=== PATIENT | male | born 1940 ===

== ENCOUNTER 2017-01-29 05:58 | Observation (INO) | payer MEDICARE, OTHER ==
[2017-01-29 05:59] VITALS: PULSE 158; BMI 23.2
--- NOTE | 2017-01-29 07:09 | ED PDOC ---
HPI: General Adult Time Seen by Provider: 01/29/17 07:06 Chief Complaint (Nursing): Abdominal Pain Chief Complaint (Provider): abdominal pain History Per: Patient History/Exam Limitations: no limitations Additional Complaint(s): 77yo male comes to the ED complaining of lower abdominal pain with constipation for several days. No nausea, vomit, diarrhea. He also reports shortness of breath, but no cough or chest pain. Last dialysis was yesterday. PMD: Dr. Aiken Past Medical History Reviewed: Historical Data, Nursing Documentation, Vital Signs Vital Signs: Last Vital Signs Temp 98.4 F 01/29/17 06:39 Pulse 71 01/29/17 06:39 Resp 18 01/29/17 06:39 BP 145/83 01/29/17 06:39 Pulse Ox 99 01/29/17 07:19 - Medical History PMH: CAD, CHF, HTN, Hypercholesterolemia, Pancreatitis, End Stage Renal Disease , Chronic Kidney Disease - Surgical History Surgical History: Appendectomy, Cholecystectomy, Hernia Repair - Family History Family History: States: Unknown Family Hx - Home Medications Home Medications: Ambulatory Orders Medication Instructions Recorded Valsartan [Diovan] 320 mg PO DAILY 05/30/16 - Allergies Allergies/Adverse Reactions: Allergies Allergy/AdvReac Type Severity Reaction Status Date / Time No Known Allergies Allergy Verified 05/30/16 09:50 Review of Systems ROS Statement: Except As Marked, All Systems Reviewed And Found Negative Cardiovascular: Negative for: Chest Pain Respiratory: Positive for: Shortness of Breath. Negative for: Cough Gastrointestinal: Positive for: Abdominal Pain, Constipation. Negative for: Nausea, Vomiting, Diarrhea Physical Exam - Reviewed Nursing Documentation Reviewed: Yes Vital Signs Reviewed: Yes - Physical Exam Appears: Positive for: Well, Non-toxic, No Acute Distress Head Exam: Positive for: ATRAUMATIC, NORMAL INSPECTION, NORMOCEPHALIC Skin: Positive for: Warm, Dry Eye Exam: Positive for: EOMI, PERRL Cardiovascular/Chest: Positive for: Regular Rate, Rhythm Respiratory: Positive for: Normal Breath Sounds. Negative for: Rales, Rhonchi, Wheezing Gastrointestinal/Abdominal: Positive for: Normal Exam, Soft. Negative for: Tenderness, Guarding, Rebound Neurologic/Psych: Positive for: Alert, Oriented - Laboratory Results Result Diagrams: 01/29/17 07:49 01/29/17 07:49 - ECG O2 Sat by Pulse Oximetry: 99 (RA) Pulse Ox Interpretation: Normal Medical Decision Making Medical Decision Makin CT abd/pel w/o, EKG, CXR, labs, blood culture ordered. Disposition - Clinical Impression Clinical Impression: Chronic kidney disease requiring chronic dialysis, Colitis, COPD (chronic obstructive pulmonary disease) - Patient ED Disposition Is Patient to be Admitted: Yes - Disposition Disposition Time: 10:15 Condition: FAIR - Pt Status Changed To: Hospital Disposition Of: Observation - POA Present On Arrival: None Additional Comments - Additional Comments Additional Comments: Scribe Attestation Documented by Justin Quach acting as a scribe for Sae Gonzales MD. Provider Attestation All medical record entries made by the Scribe were at my direction and personally dictated by me. I have reviewed the chart and agree that the record accurately reflects my personal performance of the history, physical exam, medical decision making, and the department course for this patient. I have also personally directed, reviewed, and agree with the discharge instructions and disposition
[2017-01-29 07:52] LABS: BASO % 0.5 % (0.0-2.0); EOS # 0.6 K/uL (0.0-0.7); EOS % 7.9 % (0.0-4.0); HEMATOCRIT 38.5 % (35.0-51.0); LYMPH # 2.4 K/uL (1.0-4.3); LYMPH % 32.3 % (20.0-40.0); MEAN CELL VOLUME 89.5 fl (80.0-94.0); MEAN CORPUSCULAR HEMOGLOBIN 29.4 pg (27.0-31.0); MEAN CORPUSCULAR HGB CONC 32.8 g/dL (33.0-37.0); MEAN PLATELET VOLUME 7.4 fl (7.2-11.7); MONO # 0.8 K/uL (0.0-0.8); MONO % 10.6 % (0.0-10.0); NEUT # 3.6 K/uL (1.8-7.0); NEUT % 48.7 % (50.0-75.0); RED CELL DISTRIBUTION WIDTH 15.5 % (11.5-14.5); WHITE BLOOD COUNT 7.3 K/uL (4.8-10.8)
[2017-01-29 08:02] LABS: ALB/GLOB RATIO 1.2 (1.0-2.1); BILIRUBIN,TOTAL 0.5 mg/dl (0.2-1.3); CALCIUM 9.1 mg/dL (8.4-10.2); POTASSIUM 4.7 MMOL/L (3.6-5.0); TOTAL PROTEIN 7.1 G/DL (6.3-8.2)
--- NOTE | 2017-01-29 08:43 | RAD ---
HISTORY: Shortness of breath COMPARISON: 11/08/2015. TECHNIQUE: Chest PA and lateral FINDINGS: There is stable appearance of left subclavian endovascular stent graft. LUNGS: The lungs are hyperinflated and there is peribronchial thickening with streaky opacities in both lungs. . PLEURA: No significant pleural effusion identified. No pneumothorax apparent. CARDIOVASCULAR: Normal. OSSEOUS STRUCTURES: There is diffuse bone demineralization and multilevel degenerative changes in the spine. VISUALIZED UPPER ABDOMEN: Normal. OTHER FINDINGS: None. IMPRESSION: COPD. No active pulmonary disease.
--- NOTE | 2017-01-29 09:54 | CT ---
PROCEDURE: CT Abdomen and Pelvis without intravenous contrast HISTORY: Abdominal pain COMPARISON: 11/02/2015. TECHNIQUE: CT scan of the abdomen and pelvis was performed without administration of oral or intravenous contrast. Coronal and sagittal reformatted images were obtained.. Radiation dose: Total exam DLP = 806.60 mGy-cm. This CT exam was performed using one or more of the following dose reduction techniques: Automated exposure control, adjustment of the mA and/or kV according to patient size, and/or use of iterative reconstruction technique. FINDINGS: LOWER THORAX: There is bibasilar subsegmental atelectasis. LIVER: The liver is normal in size. There is a 1.9 cm simple cyst in the left hepatic lobe. GALLBLADDER AND BILE DUCTS: Surgically absent. PANCREAS: The pancreas is normal in size. No ductal dilatation or calcifications. SPLEEN: The spleen is normal in size. ADRENALS: Normal in size. No mass. KIDNEYS AND URETERS: Both kidneys are atrophic. There are simple cysts in both kidneys, the largest in the right lower pole measures 2.2 cm. There are punctate nonobstructing stones in both kidneys. No hydronephrosis. VASCULATURE: Unremarkable. No aortic aneurysm. BOWEL: The proximal and mid small bowel loops are normal in caliber with fecalization of small bowel contents compatible with chronic stasis. There is segmental moderate mural thickening in the distal ileum. The terminal ileum and ileocecal junction are normal. There is left colonic diverticulosis without CT evidence for acute diverticulitis. APPENDIX: Normal appendix. PERITONEUM: No free fluid. No free air. LYMPH NODES: No enlarged lymph nodes. BLADDER: There is mild circumferential mural thickening of the urinary bladder wall. REPRODUCTIVE: There is moderate enlargement of the prostate gland BONES: No acute fracture. OTHER FINDINGS: There is a small sliding hiatal hernia. IMPRESSION: 1. Segmental moderate mural thickening in the distal ileum without evidence of obstruction. Findings could be related to nonspecific infectious/inflammatory enteritis. 2. Left colonic diverticulosis without CT evidence for acute diverticulitis. 3. Mild circumferential mural thickening of the urinary bladder wall which could be related to cystitis or outlet obstruction. Persistent moderate enlargement of the prostate gland. Please correlate with PSA levels.
[2017-01-29] MEDS ORDERED: Ciprofloxacin 400mg/200ml D5W 400 MG/200 ML BAG IVPB STA (10:13)
[2017-01-29] MEDS ORDERED: Albuterol-Ipratrop 3 mg / 0.5 (3 ml) UD IH STA (10:13)
[2017-01-29] MEDS ORDERED: metroNIDAZOLE 500mg/100ml NS 100 ML IVPB STA (10:13)
[2017-01-29] MEDS ORDERED: metroNIDAZOLE 500mg/100ml NS 100 ML IVPB ONE (12:11)
[2017-01-29] MEDS ORDERED: Albuterol-Ipratrop 3 mg / 0.5 (3 ml) UD ONE (12:11)
[2017-01-29] MEDS ORDERED: Ciprofloxacin 400mg/200ml D5W 400 MG/200 ML BAG IVPB ONE (12:11)
[2017-01-29 13:03] LABS: VENOUS BLOOD GAS BASE EXCESS 6.5 mmol/L (0.0-2.0); VENOUS BLOOD GAS PCO2 48 mmHg (40-60); VENOUS BLOOD PH 7.43 (7.32-7.43)
--- NOTE | 2017-01-29 16:05 | CARD ---
APPROVED REPORT EKG Measurement Heart [id number] <Conclusion> Normal sinus rhythm Left anterior fascicular block Abnormal ECG
[2017-01-29] MEDS: metroNIDAZOLE 500mg/100ml NS 100 ML IVPB SCH (17:37)
[2017-01-29] MEDS: Ciprofloxacin 400mg/200ml D5W 400 MG/200 ML BAG IVPB SCH (21:19)
[2017-01-30] MEDS: metroNIDAZOLE 500mg/100ml NS 100 ML IVPB SCH ×3 (00:13→16:39)
[2017-01-30] MEDS: Multivitamin With Minerals Tab PO SCH (09:22)
[2017-01-30] MEDS: Enoxaparin 30 mg Syringe SC SCH (09:23)
--- NOTE | 2017-01-30 10:57 | CP.PCM.HP ---
History of Present Illness - History of Present Illness History of Present Illness: 75yo M with PMHx CAD, CHF, HTN, HLD, Pancreatitis, Afib, ESRD (M/W/F) admitted for abd pain. abd pain for a few days, no radiation, no trigger. Denies abd pain , n/v, diarrhea currently. PMHx: as above SHx: LUE AV fistula Allergies: NKDA Family Hx: NC Social Hx: denies EtOH, denies tobacco d/w attending Present on Admission - Present on Admission Any Indicators Present on Admission: No Review of Systems - Review of Systems All systems: reviewed and no additional remarkable complaints except Review of Systems: abd pain Past Patient History - Past Medical History & Family History Past Medical History?: Yes - Past Social History Smoking Status: Never Smoked - CARDIAC Hx Cardiac Disorders: Yes - PULMONARY Hx Respiratory Disorders: Yes - NEUROLOGICAL Hx Neurological Disorder: No - HEENT Hx HEENT Problems: No - RENAL Hx Chronic Kidney Disease: Yes - ENDOCRINE/METABOLIC Hx Endocrine Disorders: No - HEMATOLOGICAL/ONCOLOGICAL Hx Blood Disorders: No - INTEGUMENTARY Hx Dermatological Problems: No - MUSCULOSKELETAL/RHEUMATOLOGICAL Hx Musculoskeletal Disorders: No Hx Falls: No - GASTROINTESTINAL Hx Pancreatitis: Yes - GENITOURINARY/GYNECOLOGICAL Other/Comment: renal failure - PSYCHIATRIC Hx Psychophysiologic Disorder: No Hx Emotional Abuse: No Hx Physical Abuse: No Hx Substance Use: No - SURGICAL HISTORY Hx Appendectomy: Yes Hx Cholecystectomy: Yes - ANESTHESIA Hx Anesthesia: Yes Hx Anesthesia Reactions: No Hx Malignant Hyperthermia: No Meds Allergies/Adverse Reactions: Allergies Allergy/AdvReac Type Severity Reaction Status Date / Time No Known Allergies Allergy Verified 05/30/16 09:50 Physical Exam - Constitutional Appears: Non-toxic, No Acute Distress - Head Exam Head Exam: NORMAL INSPECTION - Eye Exam Eye Exam: Normal appearance - ENT Exam ENT Exam: Mucous Membranes Moist - Neck Exam Neck exam: Positive for: Normal Inspection - Respiratory Exam Respiratory Exam: NORMAL BREATHING PATTERN - Cardiovascular Exam Cardiovascular Exam: REGULAR RHYTHM - GI/Abdominal Exam GI & Abdominal Exam: Soft - Extremities Exam Extremities exam: Positive for: normal inspection. Negative for: pedal edema - Back Exam Back exam: NORMAL INSPECTION - Neurological Exam Neurological exam: Alert, Oriented x3 - Skin Skin Exam: Dry, Warm Results - Vital Signs Recent Vital Signs: Last Vital Signs Temp 98.5 F 01/30/17 07:59 Pulse 74 01/30/17 07:59 Resp 20 01/30/17 07:59 BP 154/80 H 01/30/17 07:59 Pulse Ox 98 01/30/17 07:59 - Labs Result Diagrams: 01/29/17 07:49 01/29/17 07:49 Assessment & Plan (1) COPD (chronic obstructive pulmonary disease) Status: Acute (2) Colitis Status: Acute (3) Chronic kidney disease requiring chronic dialysis Status: Chronic Priority: High - Assessment and Plan (Free Text) Plan: -GI on board, appreciate input -Nephro on board, appreciate input -HD today -cipro/flagyl IV -c/w home meds -CT abd/pelvis reviewed Decision To Admit - Pt Status Changed To: Hospital Disposition Of: Observation - . Bed Request Type: Med/Surg Admitting Physician: Ramon Aiken
[2017-01-30] MEDS: Ciprofloxacin 400mg/200ml D5W 400 MG/200 ML BAG IVPB SCH ×3 (11:32→23:00)
[2017-01-30] MEDS: POLYETHYLENE GLYCOL 3350 17 GM/Dose PACKET PO SCH ×2 (11:33→16:39)
[2017-01-30] MEDS: Bisacodyl 5mg EC Tab PO SCH (12:05)
[2017-01-30 12:40] LABS: HEMATOCRIT 33.9 % (35.0-51.0); MEAN CELL VOLUME 89.7 fl (80.0-94.0); MEAN CORPUSCULAR HGB CONC 32.3 g/dL (33.0-37.0); RED CELL DISTRIBUTION WIDTH 15.7 % (11.5-14.5); WHITE BLOOD COUNT 6.9 K/uL (4.8-10.8)
[2017-01-30 12:54] LABS: CALCIUM 7.4 mg/dL (8.4-10.2)
--- NOTE | 2017-01-30 14:26 | CP.PCM.CON ---
History of Present Illness - History of Present Illness History of Present Illness: This patient who is 77 years old known to me with end-stage renal disease on maintenance hemodialysis Saturday. Last hemodialysis was on Saturday and he came yesterday because of the lower abdominal pain. As noted in the H/.P No nausea no vomiting Patient has history of acute pancreatitis in the past and chronic pancreatitis admission for abdominal pain and diverticulitis among other things. 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 absent: Melena, Nausea, Vomiting - Genitourinary Genitourinary: Nocturia - Musculoskeletal Musculoskeletal: As Per HPI - Neurological Neurological: absent: Abnormal Movements, Tremor, Vertigo - Psychiatric Psychiatric: absent: Anxiety - Endocrine Endocrine: As Per HPI - Hematologic/Lymphatic Hematologic: As Per HPI Past Patient History - Past Medical History & Family History Past Medical History?: Yes - Past Social History Smoking Status: Never Smoked - CARDIAC Hx Cardiac Disorders: Yes - PULMONARY Hx Respiratory Disorders: Yes - NEUROLOGICAL Hx Neurological Disorder: No - HEENT Hx HEENT Problems: No - RENAL Hx Chronic Kidney Disease: Yes - ENDOCRINE/METABOLIC Hx Endocrine Disorders: No - HEMATOLOGICAL/ONCOLOGICAL Hx Blood Disorders: No - INTEGUMENTARY Hx Dermatological Problems: No - MUSCULOSKELETAL/RHEUMATOLOGICAL Hx Musculoskeletal Disorders: No Hx Falls: No - GASTROINTESTINAL Hx Pancreatitis: Yes - GENITOURINARY/GYNECOLOGICAL Other/Comment: renal failure - PSYCHIATRIC Hx Psychophysiologic Disorder: No Hx Emotional Abuse: No Hx Physical Abuse: No Hx Substance Use: No - SURGICAL HISTORY Hx Appendectomy: Yes Hx Cholecystectomy: Yes - ANESTHESIA Hx Anesthesia: Yes Hx Anesthesia Reactions: No Hx Malignant Hyperthermia: No Meds Home Medications: Home Medication List Medication Instructions Recorded Confirmed Type Ciprofloxacin [Cipro] 500 mg PO BID #10 tab 01/30/17 Rx Metronidazole [Flagyl] 500 mg PO TID #15 tab 01/30/17 Rx Allergies/Adverse Reactions: Allergies Allergy/AdvReac Type Severity Reaction Status Date / Time No Known Allergies Allergy Verified 05/30/16 09:50 - Medications Medications: Current Medications Bisacodyl (Dulcolax) 5 mg PO DAILY [facility] Last Admin: 01/30/17 12:05 Dose: 5 mg Enoxaparin Sodium (Lovenox) 30 mg SC DAILY [facility] PRN Reason: Protocol Last Admin: 01/30/17 09:23 Dose: 30 mg Famotidine (Pepcid) 40 mg PO BID [facility] Last Admin: 01/30/17 09:23 Dose: 40 mg Gabapentin (Neurontin) 100 mg PO TID [facility] Last Admin: 01/30/17 09:22 Dose: 100 mg Home Med (Linaclotide [Linzess]) 145 mcg PO DAILY [facility] Ciprofloxacin (Cipro 400mg/200ml Dsw) 400 mg in 200 mls @ 200 mls/hr IVPB Q12 [facility] Last Admin: 01/30/17 11:32 Dose: 200 mls/hr Metronidazole (Flagyl 500mg/100ml Ns) 100 mls @ 100 mls/hr IVPB Q8 [facility] Last Admin: 01/30/17 09:22 Dose: 100 mls/hr Multivitamins/Minerals (Therapeutic-M Tab) 1 tab PO DAILY [facility] Last Admin: 01/30/17 09:22 Dose: 1 tab Polyethylene Glycol (Miralax) 17 gm PO BID [facility] Last Admin: 01/30/17 11:33 Dose: 17 gm Valsartan (Diovan) 160 mg PO DAILY [facility] Last Admin: 01/30/17 09:22 Dose: 160 mg Zolpidem Tartrate (Ambien) 5 mg PO HS [facility] Last Admin: 01/29/17 21:20 Dose: 5 mg Physical Exam - Constitutional Appears: No Acute Distress - ENT Exam ENT Exam: Mucous Membranes Moist - Respiratory Exam Respiratory Exam: NORMAL BREATHING PATTERN. absent: Chest Wall Tenderness, Rales - Cardiovascular Exam Cardiovascular Exam: REGULAR RHYTHM. absent: JVD, Rubs - Extremities Exam Extremities exam: Negative for: calf tenderness - Back Exam Back exam: absent: CVA tenderness (L), CVA tenderness (R) - Neurological Exam Neurological exam: Alert - Psychiatric Exam Psychiatric exam: Normal Affect Results - Vital Signs Recent Vital Signs: Last Vital Signs Temp 98.5 F 01/30/17 07:59 Pulse 74 01/30/17 07:59 Resp 20 01/30/17 07:59 BP 154/80 H 01/30/17 07:59 Pulse Ox 98 01/30/17 07:59 - Labs Result Diagrams: 01/30/17 12:30 01/30/17 12:30 Labs: Laboratory Results - last 24 hr 01/30/17 01/30/17 12:30 12:30 WBC 6.9 RBC 3.78 L Hgb 10.9 L Hct 33.9 L MCV 89.7 MCH 29.0 MCHC 32.3 L RDW 15.7 H Plt Count 222 Sodium 134 Potassium 5.0 Chloride 97 L Carbon Dioxide 24 Anion Gap 18 BUN 50 H Creatinine 10.5 H* D Est GFR ( Amer) 6 Est GFR (Non-Af Amer) 5 Random Glucose 112 H Calcium 7.4 L Assessment & Plan (1) Chronic kidney disease requiring chronic dialysis Assessment and Plan: Patient with end stage renal disease admitted because of the lower abdomen pain and he was constipated. Today he feels much better and appeared to be stable Hemodialysis starting now with vital signs stable to do ultrafiltration thousand cc as tolerated Potassium bath 2 mEq Patient to have PSA whether it would be done now or outpatient As per primary team Status: Chronic Priority: High (2) Abdominal pain Status: Acute
--- NOTE | 2017-01-30 19:04 | CP.PCM.CON ---
History of Present Illness - History of Present Illness History of Present Illness: CC: Chest pain/SOB; also abdo pain and constipation HPI: 75 year old male with h/o CAD, CHF, HTN, HLD, ESRD On HD, Afib who presents with abdominal pain. He reports the pain has been going on the past 4 days. The pain was diffuse. He characterizes it as mild. He says that he has chronic constipation and difficulty moving his bowels. He hasn't tried any medications. No fever, rectal bleeding. Reports colonoscopy within 6 months to 1 year. Tolerating diet. No vomiting or heartburn. PMHx: CAD CHF HTN HLD ESRD A Fib PSHx: LUE AV fistula FHx: No family history of GI problems SHx: denies EtOH, denies tobacco, no drugs ROS A comprehensive review of systems was performed and was negative apart from HPI Past Patient History - Past Medical History & Family History Past Medical History?: Yes - Past Social History Smoking Status: Never Smoked - CARDIAC Hx Cardiac Disorders: Yes - PULMONARY Hx Respiratory Disorders: Yes - NEUROLOGICAL Hx Neurological Disorder: No - HEENT Hx HEENT Problems: No - RENAL Hx Chronic Kidney Disease: Yes - ENDOCRINE/METABOLIC Hx Endocrine Disorders: No - HEMATOLOGICAL/ONCOLOGICAL Hx Blood Disorders: No - INTEGUMENTARY Hx Dermatological Problems: No - MUSCULOSKELETAL/RHEUMATOLOGICAL Hx Musculoskeletal Disorders: No Hx Falls: No - GASTROINTESTINAL Hx Pancreatitis: Yes - GENITOURINARY/GYNECOLOGICAL Other/Comment: renal failure - PSYCHIATRIC Hx Psychophysiologic Disorder: No Hx Emotional Abuse: No Hx Physical Abuse: No Hx Substance Use: No - SURGICAL HISTORY Hx Appendectomy: Yes Hx Cholecystectomy: Yes - ANESTHESIA Hx Anesthesia: Yes Hx Anesthesia Reactions: No Hx Malignant Hyperthermia: No Meds Home Medications: Home Medication List Medication Instructions Recorded Confirmed Type Ciprofloxacin [Cipro] 500 mg PO BID #10 tab 01/30/17 Rx Metronidazole [Flagyl] 500 mg PO TID #15 tab 01/30/17 Rx Allergies/Adverse Reactions: Allergies Allergy/AdvReac Type Severity Reaction Status Date / Time No Known Allergies Allergy Verified 05/30/16 09:50 - Medications Medications: Current Medications Bisacodyl (Dulcolax) 5 mg PO DAILY [facility] Last Admin: 01/30/17 12:05 Dose: 5 mg Enoxaparin Sodium (Lovenox) 30 mg SC DAILY [facility] PRN Reason: Protocol Last Admin: 01/30/17 09:23 Dose: 30 mg Famotidine (Pepcid) 40 mg PO BID [facility] Last Admin: 01/30/17 16:40 Dose: 40 mg Gabapentin (Neurontin) 100 mg PO TID [facility] Last Admin: 01/30/17 16:40 Dose: 100 mg Home Med (Linaclotide [Linzess]) 145 mcg PO DAILY [facility] Ciprofloxacin (Cipro 400mg/200ml Dsw) 400 mg in 200 mls @ 200 mls/hr IVPB Q12 [facility] Last Admin: 01/30/17 11:32 Dose: 200 mls/hr Metronidazole (Flagyl 500mg/100ml Ns) 100 mls @ 100 mls/hr IVPB Q8 [facility] Last Admin: 01/30/17 16:39 Dose: 100 mls/hr Multivitamins/Minerals (Therapeutic-M Tab) 1 tab PO DAILY [facility] Last Admin: 01/30/17 09:22 Dose: 1 tab Polyethylene Glycol (Miralax) 17 gm PO BID [facility] Last Admin: 01/30/17 16:39 Dose: 17 gm Valsartan (Diovan) 160 mg PO DAILY [facility] Last Admin: 01/30/17 09:22 Dose: 160 mg Zolpidem Tartrate (Ambien) 5 mg PO HS [facility] Last Admin: 01/29/17 21:20 Dose: 5 mg Physical Exam - Constitutional Appears: Non-toxic, No Acute Distress, Chronically Ill - Head Exam Head Exam: ATRAUMATIC, NORMOCEPHALIC - Eye Exam Eye Exam: Normal appearance. absent: PERRL, Scleral icterus - ENT Exam ENT Exam: Mucous Membranes Moist, Normal Oropharynx - Neck Exam Neck exam: Negative for: Lymphadenopathy, Thyromegaly - Respiratory Exam Respiratory Exam: NORMAL BREATHING PATTERN. absent: Wheezes, Respiratory Distress - Cardiovascular Exam Cardiovascular Exam: REGULAR RHYTHM, +S1, +S2 - GI/Abdominal Exam GI & Abdominal Exam: Soft. absent: Guarding, Tenderness - Extremities Exam Extremities exam: Positive for: normal capillary refill. Negative for: pedal edema - Neurological Exam Neurological exam: Alert, Oriented x3 - Psychiatric Exam Psychiatric exam: Normal Affect, Normal Mood - Skin Skin Exam: Dry, Warm Results - Vital Signs Recent Vital Signs: Last Vital Signs Temp 98.0 F 01/30/17 16:01 Pulse 73 05/31/17 16:01 Resp 17 01/30/17 16:01 BP 134/73 01/30/17 16:01 Pulse Ox 96 01/30/17 16:01 - Labs Result Diagrams: 01/30/17 12:30 01/30/17 12:30 Labs: Laboratory Results - last 24 hr 01/30/17 01/30/17 01/30/17 12:30 12:30 14:39 WBC 6.9 RBC 3.78 L Hgb 10.9 L Hct 33.9 L MCV 89.7 MCH 29.0 MCHC 32.3 L RDW 15.7 H Plt Count 222 Sodium 134 Potassium 5.0 Chloride 97 L Carbon Dioxide 24 Anion Gap 18 BUN 50 H Creatinine 10.5 H* D Est GFR ( Amer) 6 Est GFR (Non-Af Amer) 5 Random Glucose 112 H Calcium 7.4 L Prostate Specific Ag 2.64 Assessment & Plan - Assessment and Plan (Free Text) Assessment: 77 year old male with h/o CAD, CHF, HTN, HLD, Afib, ESRD on HD admitted with abdominal pain and constipation. 1. Constipation 2. Abdominal pain Plan: -CT scan reviewed -treat as constipation -miralax bid -dulcolax prn -diet as tolerated -ok to discharge -he reports colonoscopy within 1 year - Date & Time Date: 01/30/17 Time: 19:04
[2017-01-31] MEDS: metroNIDAZOLE 500mg/100ml NS 100 ML IVPB SCH ×2 (00:28→08:48)
[2017-01-31 07:59] LABS: HEMATOCRIT 34.8 % (35.0-51.0); MEAN CELL VOLUME 89.6 fl (80.0-94.0); MEAN CORPUSCULAR HGB CONC 32.4 g/dL (33.0-37.0); RED CELL DISTRIBUTION WIDTH 15.5 % (11.5-14.5); WHITE BLOOD COUNT 6.4 K/uL (4.8-10.8)
[2017-01-31 08:01] LABS: BILIRUBIN,TOTAL 0.5 mg/dl (0.2-1.3); CALCIUM 7.7 mg/dL (8.4-10.2); POTASSIUM 4.5 MMOL/L (3.6-5.0); TOTAL PROTEIN 5.8 G/DL (6.3-8.2)
[2017-01-31 08:04] LABS: ALB/GLOB RATIO 1.1 (1.0-2.1)
[2017-01-31 08:21] VITALS: BP 141/79; PULSE 65; RESP 20; TEMP 98.4; O2SAT 95
[2017-01-31] MEDS: Enoxaparin 30 mg Syringe SC SCH (08:48)
[2017-01-31] MEDS: POLYETHYLENE GLYCOL 3350 17 GM/Dose PACKET PO SCH ×2 (08:48→08:52)
[2017-01-31] MEDS: Ciprofloxacin 400mg/200ml D5W 400 MG/200 ML BAG IVPB SCH (08:48)
[2017-01-31] MEDS: Bisacodyl 5mg EC Tab PO SCH (08:49)
[2017-01-31] MEDS: Multivitamin With Minerals Tab PO SCH (08:49)
--- NOTE | 2017-01-31 09:33 | CP.PCM.PN ---
Subjective - Date & Time of Evaluation Date of Evaluation: 01/31/17 Time of Evaluation: 09:31 - Subjective Subjective: Patient and bed Patient is doing fine No complaint reported No nausea no vomiting Completed dialysis yesterday Vital signs stable Physical exam Chest clear Heart no rubs Abdomen soft Extremity no edema Impression and plan End stage renal disease H&N admitted with diarrhea constipation appears to be stable Patient going home and follow-up as outpatient at the dialysis Objective - Vital Signs/Intake and Output Vital Signs (last 24 hours): Temp Pulse Resp BP Pulse Ox 98.4 F 65 20 141/79 95 01/31/17 08:20 01/31/17 08:20 01/31/17 08:20 01/31/17 08:20 01/31/17 08:20 - Medications Medications: Current Medications Bisacodyl (Dulcolax) 5 mg PO DAILY [facility] Last Admin: 01/31/17 08:49 Dose: 5 mg Enoxaparin Sodium (Lovenox) 30 mg SC DAILY [facility] PRN Reason: Protocol Last Admin: 01/31/17 08:48 Dose: 30 mg Famotidine (Pepcid) 40 mg PO BID [facility] Last Admin: 01/31/17 08:49 Dose: 40 mg Gabapentin (Neurontin) 100 mg PO TID [facility] Last Admin: 01/31/17 08:49 Dose: 100 mg Home Med (Linaclotide [Linzess]) 145 mcg PO DAILY [facility] Ciprofloxacin (Cipro 400mg/200ml Dsw) 400 mg in 200 mls @ 200 mls/hr IVPB Q12 [facility] Last Admin: 01/31/17 08:48 Dose: 200 mls/hr Metronidazole (Flagyl 500mg/100ml Ns) 100 mls @ 100 mls/hr IVPB Q8 [facility] Last Admin: 01/31/17 08:48 Dose: 100 mls/hr Multivitamins/Minerals (Therapeutic-M Tab) 1 tab PO DAILY [facility] Last Admin: 01/31/17 08:49 Dose: 1 tab Polyethylene Glycol (Miralax) 17 gm PO BID [facility] Last Admin: 01/31/17 08:52 Dose: Not Given Valsartan (Diovan) 160 mg PO DAILY [facility] Last Admin: 01/31/17 08:48 Dose: 160 mg Zolpidem Tartrate (Ambien) 5 mg PO HS [facility] Last Admin: 01/30/17 23:00 Dose: 5 mg - Labs Labs: 01/31/17 07:10 01/31/17 07:10 Assessment and Plan (1) Chronic kidney disease requiring chronic dialysis Status: Chronic (2) Abdominal pain Status: Acute
--- NOTE | 2017-01-31 16:11 | CP.PCM.DIS ---
Provider - Provider Date of Admission: 01/29/17 10:14 Attending physician: Ramon Aiken MD Time Spent in preparation of Discharge (in minutes): 30 Diagnosis - Discharge Diagnosis (1) Abdominal pain Status: Acute (2) Chronic kidney disease requiring chronic dialysis Status: Chronic Priority: High (3) Colitis Status: Acute Hospital Course - Lab Results Lab Results: Micro Results 01/29/17 23:45 Blood-Venous Blood Culture - Preliminary NO GROWTH AFTER 24 HOURS Most Recent Lab Values WBC 6.4 K/uL (4.8-10.8) 01/31/17 07:10 RBC 3.89 Mil/uL (4.40-5.90) L 01/31/17 07:10 Hgb 11.3 g/dL (12.0-18.0) L 01/31/17 07:10 Hct 34.8 % (35.0-51.0) L 01/31/17 07:10 MCV 89.6 fl (80.0-94.0) 01/31/17 07:10 MCH 29.0 pg (27.0-31.0) 01/31/17 07:10 MCHC 32.4 g/dL (33.0-37.0) L 01/31/17 07:10 RDW 15.5 % (11.5-14.5) H 01/31/17 07:10 Plt Count 188 K/uL (130-400) 01/31/17 07:10 MPV 7.4 fl (7.2-11.7) 01/29/17 07:49 Neut % (Auto) 48.7 % (50.0-75.0) L 01/29/17 07:49 Lymph % (Auto) 32.3 % (20.0-40.0) 01/29/17 07:49 Gregory % (Auto) 10.6 % (0.0-10.0) H 01/29/17 07:49 Eos % (Auto) 7.9 % (0.0-4.0) H 01/29/17 07:49 Baso % (Auto) 0.5 % (0.0-2.0) 01/29/17 07:49 Neut # 3.6 K/uL (1.8-7.0) 01/29/17 07:49 Lymph # 2.4 K/uL (1.0-4.3) 01/29/17 07:49 Gregory # 0.8 K/uL (0.0-0.8) 01/29/17 07:49 Eos # 0.6 K/uL (0.0-0.7) 01/29/17 07:49 Baso # 0.0 K/uL (0.0-0.2) 01/29/17 07:49 pO2 40 mm/Hg (30-55) 01/29/17 10:13 VBG pH 7.43 (7.32-7.43) 01/29/17 10:13 VBG pCO2 48 mmHg (40-60) 01/29/17 10:13 VBG HCO3 29.5 mmol/L 01/29/17 10:13 VBG Total CO2 33.4 mmol/L (22-28) H 01/29/17 10:13 VBG O2 Sat (Calc) 76.7 % (40-65) H 01/29/17 10:13 VBG Base Excess 6.5 mmol/L (0.0-2.0) H 01/29/17 10:13 VBG Potassium 4.6 mmol/L (3.6-5.2) 01/29/17 10:13 Sodium 135.0 mmol/L (132-148) 01/29/17 10:13 Chloride 99.0 mmol/L (98-107) 01/29/17 10:13 Glucose 124 mg/dL (75-110) H 01/29/17 10:13 Lactate 1.5 mmol/L (0.7-2.1) 01/29/17 10:13 FiO2 21.0 % 01/29/17 10:13 Sodium 134 mmol/l (132-148) 01/31/17 07:10 Potassium 4.5 MMOL/L (3.6-5.0) 01/31/17 07:10 Chloride 97 mmol/L (98-107) L 01/31/17 07:10 Carbon Dioxide 27 mmol/L (22-30) 01/31/17 07:10 Anion Gap 15 (10-20) 01/31/17 07:10 BUN 21 mg/dl (9-20) H 01/31/17 07:10 Creatinine 6.5 mg/dL (0.8-1.5) H 01/31/17 07:10 Est GFR ( Amer) 10 01/31/17 07:10 Est GFR (Non-Af Amer) 8 01/31/17 07:10 Random Glucose 80 mg/dL (75-110) 01/31/17 07:10 Calcium 7.7 mg/dL (8.4-10.2) L 01/31/17 07:10 Total Bilirubin 0.5 mg/dl (0.2-1.3) 01/31/17 07:10 AST 19 U/L (17-59) 01/31/17 07:10 ALT 25 U/L (21-72) 01/31/17 07:10 Alkaline Phosphatase 97 U/L (38-126) 01/31/17 07:10 Total Protein 5.8 G/DL (6.3-8.2) L 01/31/17 07:10 Albumin 3.1 g/dL (3.5-5.0) L D 01/31/17 07:10 Globulin 2.7 gm/dL (2.2-3.9) 01/31/17 07:10 Albumin/Globulin Ratio 1.1 (1.0-2.1) 01/31/17 07:10 Prostate Specific Ag 2.64 ng/ML (0.00-4.0) 01/30/17 14:39 Venous Blood Potassium 4.6 mmol/L (3.6-5.2) 01/29/17 10:13 - Hospital Course Hospital Course: 75 year old male with h/o CAD, CHF, HTN, HLD, ESRD On HD, Afib who presented with 4 days of abdominal pain. Patient has history of constipation. Patient was seen and evaluated by GI and Credit Administrator. Both cleared patient to be discharged home with follow up care as outpatient. Patient treated for constipation and colitis with cipro/flagyl and miralax symptoms improved. No complications during admission. Discharge Exam - Head Exam Head Exam: ATRAUMATIC, NORMOCEPHALIC - Eye Exam Eye Exam: Normal appearance - Respiratory Exam Respiratory Exam: UNREMARKABLE - Cardiovascular Exam Cardiovascular Exam: REGULAR RHYTHM, +S1, +S2 - GI/Abdominal Exam GI & Abdominal Exam: Normal Bowel Sounds, Soft. absent: Tenderness - Extremities Exam Extremities exam: normal inspection - Neurological Exam Neurological exam: Alert, Oriented x3 - Psychiatric Exam Psychiatric exam: Normal Affect, Normal Mood - Skin Skin Exam: Dry, Normal Color, Warm Discharge Plan - Discharge Medications Prescriptions: Ciprofloxacin [Cipro] 500 mg PO BID #10 tab Metronidazole [Flagyl] 500 mg PO TID #15 tab - Follow Up Plan Condition: FAIR Disposition: HOME/ ROUTINE Instructions: COPD (Chronic Obstructive Pulmonary Disease) (DC), Acute Abdominal Pain (DC), Acute Abdominal Pain (GEN) Additional Instructions: Complete all antibiotics. F/u with PMD and Dr. Hodges for HD treatments
== END 2017-01-31 11:45 | disposition home or self-care (01) ==
LOC: H.ER 05:58 → H.ERHOLD 10:14 → H.MEDSURG1 13:37
PROVIDERS: ADMIT Internal Medicine; ATTEND Internal Medicine
DX: R10.30 Lower abdominal pain, unspecified (principal); K52.9 Noninfective gastroenteritis and colitis, unspecified; K59.00 Constipation, unspecified; E78.00 Pure hypercholesterolemia, unspecified; E78.5 Hyperlipidemia, unspecified; I13.2 Hypertensive heart and chronic kidney disease with heart failure and with stage 5 chronic kidney disease, or end stage renal disease; N18.6 End stage renal disease; I25.10 Atherosclerotic heart disease of native coronary artery without angina pectoris; I48.91 Unspecified atrial fibrillation; I50.9 Heart failure, unspecified; J44.9 Chronic obstructive pulmonary disease, unspecified; Z99.2 Dependence on renal dialysis
CPT/HCPCS: 36415; 71020; 74176; 80048; 80053; 82803; 84153; 85025; 85027; 87040; 93005; 94640; 99284; G0378; J0744; J1650

== ENCOUNTER 2017-07-17 21:37 | Inpatient (IN) | payer MEDICARE, OTHER ==
[2017-07-17 21:37] VITALS: PULSE 158; BMI 23.2
[2017-07-17] MEDS ORDERED: Iohexol 240 (50 ml) PO ONE (22:00)
--- NOTE | 2017-07-17 22:21 | ED PDOC ---
HPI: Abdomen Time Seen by Provider: 07/17/17 21:48 Chief Complaint (Nursing): Abdominal Pain Chief Complaint (Provider): Abdominal Pain History Per: Patient History/Exam Limitations: no limitations Onset/Duration Of Symptoms: Days (x1) Current Symptoms Are (Timing): Still Present Additional Complaint(s): Austyn is a 77 y/o male with a past medical history of end stage renal disease ( on dialysis), CHF, a fibrillation, presenting today with abdominal pain, nausea , vomiting, which started during dialysis today. He reports 6 episodes of watery non-bloody non-bilious emesis. Abdominal pain is described as diffuse, all over. No bowel movements in 2 days. Pain has started to resolve since arriving to the ED. PMD: Ramon Aiken Past Medical History Reviewed: Historical Data, Nursing Documentation, Vital Signs Vital Signs: Last Vital Signs Temp 98.8 F 07/17/17 21:39 Pulse 101 H 07/17/17 21:39 Resp 18 07/17/17 21:39 BP 140/78 07/17/17 21:39 Pulse Ox 100 07/17/17 22:26 - Medical History PMH: CAD, CHF, HTN, Hypercholesterolemia, Pancreatitis, End Stage Renal Disease , Chronic Kidney Disease - Surgical History Surgical History: Appendectomy, Cholecystectomy, Hernia Repair - Family History Family History: States: Unknown Family Hx - Home Medications Home Medications: Ambulatory Orders Medication Instructions Recorded Famotidine [Pepcid] 40 mg PO BID 01/29/17 Gabapentin [Neurontin] 100 mg PO TID 01/29/17 Linaclotide [Linzess] 145 mcg PO DAILY 01/29/17 Multivitamin/Iron/Folic Acid 1 tab PO DAILY 01/29/17 [Centrum Complete Multivit Tab] Valsartan [Diovan] 160 mg PO DAILY 01/29/17 Zolpidem [Ambien] 10 mg PO HS 01/29/17 Ciprofloxacin [Cipro] 500 mg PO BID #10 tab 01/30/17 Metronidazole [Flagyl] 500 mg PO TID #15 tab 01/30/17 - Allergies Allergies/Adverse Reactions: Allergies Allergy/AdvReac Type Severity Reaction Status Date / Time No Known Allergies Allergy Verified 05/30/16 09:50 Review of Systems ROS Statement: Except As Marked, All Systems Reviewed And Found Negative Gastrointestinal: Positive for: Nausea, Vomiting, Abdominal Pain, Constipation. Negative for: Diarrhea, Hematemesis Physical Exam - Reviewed Nursing Documentation Reviewed: Yes Vital Signs Reviewed: Yes - Physical Exam Appears: Positive for: Non-toxic, No Acute Distress Head Exam: Positive for: ATRAUMATIC, NORMAL INSPECTION, NORMOCEPHALIC Skin: Positive for: Normal Color, Warm, Dry Eye Exam: Positive for: EOMI, Normal appearance, PERRL Neck: Positive for: Normal, Painless ROM Cardiovascular/Chest: Positive for: Regular Rate, Rhythm. Negative for: Murmur Respiratory: Positive for: Normal Breath Sounds. Negative for: Accessory Muscle Use, Respiratory Distress Gastrointestinal/Abdominal: Positive for: Soft, Tenderness (diffuse). Negative for: Guarding, Rebound Back: Positive for: Normal Inspection. Negative for: Vertebral Tenderness Extremity: Positive for: Normal ROM. Negative for: Pedal Edema, Deformity Neurologic/Psych: Positive for: Alert, Oriented - Laboratory Results Result Diagrams: 07/17/17 22:10 07/17/17 22:10 - ECG O2 Sat by Pulse Oximetry: 100 (RA) Pulse Ox Interpretation: Normal Medical Decision Making Medical Decision Making: Time: 21:59 Initial Impression: Rule out SBO Initial Plan --Blood type and screen --CMP --Troponin I --CBC --Urinalysis --Iohexol 50 ml PO --Zofran 4 mg IV --EKG --CT Abd/Pelvis PO contrast --Pending reevaluation 230 Pt. w/ SBO on CT. NGT placed. Dr. Schuler, certified surgical assistant, aware of case. Dr. Aiken aware. Will admit. Scribe Attestation: Documented by Rocio Herzog, acting as a scribe for Arik Webber MD Provider Scribe Attestation: All medical record entries made by the Scribe were at my direction and personally dictated by me. I have reviewed the chart and agree that the record accurately reflects my personal performance of the history, physical exam, medical decision making, and the department course for this patient. I have also personally directed, reviewed, and agree with the discharge instructions and disposition. Disposition - Clinical Impression Clinical Impression: SBO (small bowel obstruction) - Patient ED Disposition Is Patient to be Admitted: No - Disposition Disposition Time: 02:30 Condition: STABLE
[2017-07-17 22:22] LABS: BASO % 0.2 % (0.0-2.0); HEMATOCRIT 35.7 % (35.0-51.0); LYMPH # 1.1 K/uL (1.0-4.3); LYMPH % 6.2 % (20.0-40.0); MEAN CELL VOLUME 86.2 fl (80.0-94.0); MEAN CORPUSCULAR HEMOGLOBIN 28.1 pg (27.0-31.0); MEAN CORPUSCULAR HGB CONC 32.7 g/dL (33.0-37.0); MEAN PLATELET VOLUME 8.3 fl (7.2-11.7); MONO % 5.7 % (0.0-10.0); NEUT # 15.7 K/uL (1.8-7.0); NEUT % 87.9 % (50.0-75.0); PLATELET COUNT 193 K/uL (130-400); RED CELL DISTRIBUTION WIDTH 14.4 % (11.5-14.5); WHITE BLOOD COUNT 17.8 K/uL (4.8-10.8)
[2017-07-17 22:53] LABS: ALB/GLOB RATIO 1.3 (1.0-2.1); CALCIUM 8.8 mg/dL (8.4-10.2); POTASSIUM 3.7 MMOL/L (3.6-5.0); TOTAL PROTEIN 7.3 G/DL (6.3-8.2)
[2017-07-17 22:58] LABS: NEUTROPHIL 81 % (42-75); TOTAL CELLS COUNTED 100
[2017-07-17 23:03] LABS: TROPONIN I 0.031 ng/mL (0.00-0.120)
[2017-07-17 23:46] LABS: VENOUS BLOOD GAS BASE EXCESS 9.2 mmol/L (0.0-2.0); VENOUS BLOOD GAS PCO2 43 mmHg (40-60)
--- NOTE | 2017-07-18 01:49 | CT ---
EXAM: CT Abdomen and Pelvis With Intravenous Contrast CLINICAL HISTORY: 77 years old, male; Pain; Abdominal pain; Generalized; Prior surgery; Surgery date: 6+ months; Surgery type: Appendectomy. Cholecystectomy. Hernia repair; Additional info: Diffuse abd pain, n/v, no bm in 2 days, R/O sbo TECHNIQUE: Axial computed tomography images of the abdomen and pelvis with intravenous contrast. All CT scans at this facility use one or more dose reduction techniques, viz.: automated exposure control; ma/kV adjustment per patient size (including targeted exams where dose is matched to indication; i.e. head); or iterative reconstruction technique. Coronal and sagittal reformatted images were created and reviewed. COMPARISON: CT - ABD PELVIS W/O PO OR IV CONT 2017-01-29 09:09 FINDINGS: Lower thorax: The bilateral lung bases are clear. ABDOMEN: Liver: No acute findings. Stable rounded areas of decreased attenuation, representing hepatic cysts. Gallbladder and bile ducts: The gallbladder is surgically absent. No significant intra- or extrahepatic biliary ductal dilation. Pancreas: Enhances homogeneously. No ductal dilation. No discrete mass. Spleen: No acute findings. Adrenals: No acute findings. Kidneys and ureters: Atrophic bilaterally. Multiple rounded areas of decreased attenuation, consistent with cysts. No hydronephrosis or renal calculi. No discrete solid mass. PELVIS: Bladder: No acute findings. Reproductive: No acute findings. Appendix: Surgically absent. ABDOMEN and PELVIS: Stomach and bowel: Small bowel dilatation with mural thickening and distal decompression, findings consistent with small bowel obstruction. Transition point is detected in the mid to distal jejunum best represented on series 2, images 43 through 51. Hazy infiltration of the mesentery, without free fluid or free air. Fat containing left inguinal hernia. Fat-containing umbilical hernia. Colonic diverticulosis, without inflammation. Peritoneum: As above. Lymph nodes: No pathologically enlarged lymph nodes. Vasculature: Calcified atherosclerotic disease. Filter within the inferior vena cava. Bones: No acute fracture. Degenerative disease at the level of L2/L3 with osteophyte formation, disc space narrowing and vacuum phenomenon. IMPRESSION: Small bowel obstruction, with transition point in the mid to distal jejunum, as detailed above. Multiple nonacute findings as described above.
[2017-07-18] MEDS ORDERED: Ciprofloxacin 400mg/200ml D5W 400 MG/200 ML BAG IVPB STA (02:06)
[2017-07-18] MEDS ORDERED: metroNIDAZOLE 500mg/100ml NS 100 ML IVPB STA (02:06)
[2017-07-18] MEDS ORDERED: metroNIDAZOLE 500mg/100ml NS 100 ML IVPB ONE (02:49)
[2017-07-18] MEDS ORDERED: Ciprofloxacin 400mg/200ml D5W 400 MG/200 ML BAG IVPB ONE (02:49)
--- NOTE | 2017-07-18 03:53 | CP.PCM.CON ---
<Serafin Saul - Last Filed: 07/18/17 08:24> Meds Allergies/Adverse Reactions: Allergies Allergy/AdvReac Type Severity Reaction Status Date / Time No Known Allergies Allergy Verified 05/30/16 09:50 - Medications Medications: Current Medications Heparin Sodium (Porcine) (Heparin) 5,000 units SC Q8 RIVERA PRN Reason: Protocol Ciprofloxacin (Cipro 400mg/200ml Dsw) 400 mg in 200 mls @ 200 mls/hr IVPB Q12 RIVERA PRN Reason: Protocol Metronidazole (Flagyl 500mg/100ml Ns) 100 mls @ 100 mls/hr IVPB Q8 RIVERA PRN Reason: Protocol Ondansetron HCl (Zofran Inj) 4 mg IVP Q6 PRN PRN Reason: Nausea/Vomiting Results - Vital Signs Recent Vital Signs: Last Vital Signs Temp 98.2 F 07/18/17 08:11 Pulse 81 07/18/17 08:11 Resp 20 07/18/17 08:11 BP 163/81 H 07/18/17 08:11 Pulse Ox 93 L 07/18/17 08:11 - Labs Result Diagrams: 07/17/17 22:10 07/17/17 22:10 Labs: Laboratory Results - last 24 hr 07/17/17 07/17/17 07/17/17 22:10 22:10 22:10 WBC 17.8 H D RBC 4.14 L Hgb 11.7 L Hct 35.7 MCV 86.2 D MCH 28.1 MCHC 32.7 L RDW 14.4 Plt Count 193 MPV 8.3 Neut % (Auto) 87.9 H Lymph % (Auto) 6.2 L [place] % (Auto) 5.7 Eos % (Auto) 0.0 Baso % (Auto) 0.2 Neut # 15.7 H Lymph # 1.1 [place] # 1.0 H Eos # 0.0 Baso # 0.0 Neutrophils % (Manual) 81 H Band Neutrophils % 4 H Lymphocytes % (Manual) 9 L Monocytes % (Manual) 6 Platelet Estimate Normal Hypochromasia (manual) Slight Anisocytosis (manual) Moderate pO2 VBG pH VBG pCO2 VBG HCO3 VBG Total CO2 VBG O2 Sat (Calc) VBG Base Excess VBG Potassium Glucose Lactate FiO2 Sodium 135 Potassium 3.7 Chloride 94 L Carbon Dioxide 30 Anion Gap 15 BUN 20 Creatinine 4.4 H Est GFR ( Amer) 16 Est GFR (Non-Af Amer) 13 Random Glucose 119 H Calcium 8.8 Total Bilirubin 1.0 AST 34 ALT 24 Alkaline Phosphatase 108 Troponin I 0.0310 Total Protein 7.3 Albumin 4.1 Globulin 3.2 Albumin/Globulin Ratio 1.3 Venous Blood Potassium Blood Type A POSITIVE Antibody Screen Negative BBK History Checked Patient has bt 07/17/17 23:43 WBC RBC Hgb Hct MCV MCH MCHC RDW Plt Count MPV Neut % (Auto) Lymph % (Auto) [place] % (Auto) Eos % (Auto) Baso % (Auto) Neut # Lymph # [place] # Eos # Baso # Neutrophils % (Manual) Band Neutrophils % Lymphocytes % (Manual) Monocytes % (Manual) Platelet Estimate Hypochromasia (manual) Anisocytosis (manual) pO2 47 VBG pH 7.50 H VBG pCO2 43 VBG HCO3 31.8 VBG Total CO2 34.8 H VBG O2 Sat (Calc) 91.7 H VBG Base Excess 9.2 H VBG Potassium 3.4 L Glucose 106 Lactate 0.8 FiO2 21.0 Sodium 134.0 Potassium Chloride 99.0 Carbon Dioxide Anion Gap BUN Creatinine Est GFR ( Amer) Est GFR (Non-Af Amer) Random Glucose Calcium Total Bilirubin AST ALT Alkaline Phosphatase Troponin I Total Protein Albumin Globulin Albumin/Globulin Ratio Venous Blood Potassium 3.4 L Blood Type Antibody Screen BBK History Checked Assessment & Plan - Assessment and Plan (Free Text) Assessment: 77M w/ small bowel obstruction passed flatus this AM Plan: - will advance NGT - monitor output - await return of bowel function - recommend GI consult for thickened duodenal wall - further recs per Dr. Hernandez <Faisal Love - Last Filed: 07/18/17 09:04> History of Present Illness - History of Present Illness History of Present Illness: General Surgery Consult Note for Dr. Hernandez Reason for Consult: SBO 77 M with PMH of ESRD on HD, CHF, afib presents with abdominal pain and nausea/ vomiting. Patient states that his symptoms began yesterday while he was at dialysis. Patient reports 6 episodes of non-bloody and non-bilious emesis. He states that he symptoms began suddenly. He reports to never have experience this in the past. He rates pain as moderate. He describes pain as constant and sharp located diffusely throughout the abdomen. Patient reports no bowel movements for 2 days. Patient is currently denying any pain. Denies any alleviating or exacerbating factors. Denies fever/chills, chest pain, SOB, palpitations, diarrhea, hematemesis. PMD: Dr. Ramon Aiken PMH: ESRD on HD, afib, CAD, CHF, HTN, Hypercholesterolemia, Pancreatitis Meds: As per EMR Allergy: NKDA PSH: Appendectomy, Cholecystectomy, Hernia Repair FH: Unknown Social: denies tobacco/EtOH/illicit drug use Review of Systems - Review of Systems All systems: reviewed and no additional remarkable complaints except (abdominal pain, nausea, vomiting) Past Patient History - Past Medical History & Family History Past Medical History?: Yes - Past Social History Smoking Status: Never Smoked - CARDIAC Hx Congestive Heart Failure: Yes Hx Hypercholesterolemia: Yes Hx Hypertension: Yes - PULMONARY Hx Respiratory Disorders: Yes - NEUROLOGICAL Hx Neurological Disorder: No - HEENT Hx HEENT Problems: No - RENAL Hx Chronic Kidney Disease: Yes - ENDOCRINE/METABOLIC Hx Endocrine Disorders: No - HEMATOLOGICAL/ONCOLOGICAL Hx Blood Disorders: No - INTEGUMENTARY Hx Dermatological Problems: No - MUSCULOSKELETAL/RHEUMATOLOGICAL Hx Musculoskeletal Disorders: No Hx Falls: No - GASTROINTESTINAL Hx Pancreatitis: Yes - GENITOURINARY/GYNECOLOGICAL Other/Comment: renal failure - PSYCHIATRIC Hx Psychophysiologic Disorder: No Hx Emotional Abuse: No Hx Physical Abuse: No Hx Substance Use: No - SURGICAL HISTORY Hx Appendectomy: Yes Hx Cholecystectomy: Yes - ANESTHESIA Hx Anesthesia: Yes Hx Anesthesia Reactions: No Hx Malignant Hyperthermia: No Physical Exam - Constitutional Appears: No Acute Distress - Head Exam Head Exam: ATRAUMATIC, NORMOCEPHALIC - Eye Exam Eye Exam: EOMI, Normal appearance Pupil Exam: PERRL - ENT Exam ENT Exam: Mucous Membranes Dry - Respiratory Exam Respiratory Exam: NORMAL BREATHING PATTERN - Cardiovascular Exam Cardiovascular Exam: REGULAR RHYTHM - GI/Abdominal Exam GI & Abdominal Exam: Distended, Normal Bowel Sounds, Soft. absent: Firm, Guarding, Rebound, Rigid, Tenderness - Extremities Exam Extremities exam: Positive for: normal capillary refill, pedal pulses present. Negative for: calf tenderness Additional comments: LUE AVF with palpable thrill and bruit - Neurological Exam Neurological exam: Alert, Oriented x3 - Psychiatric Exam Psychiatric exam: Normal Affect, Normal Mood - Skin Skin Exam: Dry, Intact, Warm Results - Vital Signs Recent Vital Signs: Last Vital Signs Temp 98.6 F 07/18/17 03:00 Pulse 82 07/18/17 03:40 Resp 18 07/18/17 03:40 BP 155/91 H 07/18/17 03:40 Pulse Ox 99 07/18/17 03:40 - Labs Result Diagrams: 07/17/17 22:10 07/17/17 22:10 Labs: Laboratory Results - last 24 hr 07/17/17 07/17/17 07/17/17 22:10 22:10 22:10 WBC 17.8 H D RBC 4.14 L Hgb 11.7 L Hct 35.7 MCV 86.2 D MCH 28.1 MCHC 32.7 L RDW 14.4 Plt Count 193 MPV 8.3 Neut % (Auto) 87.9 H Lymph % (Auto) 6.2 L [place] % (Auto) 5.7 Eos % (Auto) 0.0 Baso % (Auto) 0.2 Neut # 15.7 H Lymph # 1.1 [place] # 1.0 H Eos # 0.0 Baso # 0.0 Neutrophils % (Manual) 81 H Band Neutrophils % 4 H Lymphocytes % (Manual) 9 L Monocytes % (Manual) 6 Platelet Estimate Normal Hypochromasia (manual) Slight Anisocytosis (manual) Moderate pO2 VBG pH VBG pCO2 VBG HCO3 VBG Total CO2 VBG O2 Sat (Calc) VBG Base Excess VBG Potassium Glucose Lactate FiO2 Sodium 135 Potassium 3.7 Chloride 94 L Carbon Dioxide 30 Anion Gap 15 BUN 20 Creatinine 4.4 H Est GFR ( Amer) 16 Est GFR (Non-Af Amer) 13 Random Glucose 119 H Calcium 8.8 Total Bilirubin 1.0 AST 34 ALT 24 Alkaline Phosphatase 108 Troponin I 0.0310 Total Protein 7.3 Albumin 4.1 Globulin 3.2 Albumin/Globulin Ratio 1.3 Venous Blood Potassium Blood Type A POSITIVE Antibody Screen Negative BBK History Checked Patient has bt 07/17/17 23:43 WBC RBC Hgb Hct MCV MCH MCHC RDW Plt Count MPV Neut % (Auto) Lymph % (Auto) [place] % (Auto) Eos % (Auto) Baso % (Auto) Neut # Lymph # [place] # Eos # Baso # Neutrophils % (Manual) Band Neutrophils % Lymphocytes % (Manual) Monocytes % (Manual) Platelet Estimate Hypochromasia (manual) Anisocytosis (manual) pO2 47 VBG pH 7.50 H VBG pCO2 43 VBG HCO3 31.8 VBG Total CO2 34.8 H VBG O2 Sat (Calc) 91.7 H VBG Base Excess 9.2 H VBG Potassium 3.4 L Glucose 106 Lactate 0.8 FiO2 21.0 Sodium 134.0 Potassium Chloride 99.0 Carbon Dioxide Anion Gap BUN Creatinine Est GFR ( Amer) Est GFR (Non-Af Amer) Random Glucose Calcium Total Bilirubin AST ALT Alkaline Phosphatase Troponin I Total Protein Albumin Globulin Albumin/Globulin Ratio Venous Blood Potassium 3.4 L Blood Type Antibody Screen BBK History Checked Assessment & Plan - Assessment and Plan (Free Text) Plan: 77 M with small bowel obstruction -NG tube, monitor output -Monitor bowel function -Anti-emetics PRN -Will Discuss with Dr. Mary Love PGY1 <Ant Hernandez - Last Filed: 07/19/17 15:29> Meds - Medications Medications: Current Medications Gabapentin (Neurontin) 100 mg PO TID COUNTS INCLUDE 234 BEDS AT THE [facility] Last Admin: 07/19/17 13:50 Dose: 100 mg Heparin Sodium (Porcine) (Heparin) 5,000 units SC Q8@0500,1300,2100 COUNTS INCLUDE 234 BEDS AT THE [facility] PRN Reason: Protocol Last Admin: 07/19/17 13:47 Dose: 5,000 units Home Med (Linaclotide [Linzess]) 145 mcg PO DAILY COUNTS INCLUDE 234 BEDS AT THE [facility] Ciprofloxacin (Cipro 400mg/200ml Dsw) 400 mg in 200 mls @ 200 mls/hr IVPB Q12@ 0200,1400 COUNTS INCLUDE 234 BEDS AT THE [facility] PRN Reason: Protocol Last Admin: 07/19/17 01:19 Dose: 200 mls/hr Metronidazole (Flagyl) 500 mg PO Q8 COUNTS INCLUDE 234 BEDS AT THE [facility] PRN Reason: Protocol Last Admin: 07/19/17 10:04 Dose: 500 mg Multivitamins/Minerals (Therapeutic-M Tab) 1 tab PO DAILY COUNTS INCLUDE 234 BEDS AT THE [facility] Last Admin: 07/19/17 10:03 Dose: 1 tab Ondansetron HCl (Zofran Inj) 4 mg IVP Q4 PRN PRN Reason: Nausea/Vomiting Valsartan (Diovan) 160 mg PO DAILY COUNTS INCLUDE 234 BEDS AT THE [facility] Last Admin: 07/19/17 10:04 Dose: Not Given Zolpidem Tartrate (Ambien) 5 mg PO HS PRN PRN Reason: Insomnia Last Admin: 07/18/17 22:36 Dose: 5 mg Results - Vital Signs Recent Vital Signs: Last Vital Signs Temp 98.3 F 07/19/17 08:23 Pulse 72 07/19/17 08:23 Resp 20 07/19/17 08:23 BP 152/80 H 07/19/17 08:23 Pulse Ox 95 07/19/17 08:23 - Labs Result Diagrams: 07/19/17 06:00 07/19/17 06:00 Labs: Laboratory Results - last 24 hr 07/19/17 07/19/17 07/19/17 06:00 06:00 06:00 WBC 5.3 D RBC 3.66 L Hgb 10.5 L Hct 32.0 L MCV 87.3 MCH 28.6 MCHC 32.7 L RDW 14.4 Plt Count 163 Sodium 134 Potassium 3.9 Chloride 95 L Carbon Dioxide 28 Anion Gap 15 BUN 34 H Creatinine 7.9 H* D Est GFR ( Amer) 8 Est GFR (Non-Af Amer) 7 Random Glucose 83 Calcium 8.1 L Procalcitonin 1.73 H Attending/Attestation - Attestation I have personally seen and examined this patient.: Yes I have fully participated in the care of the patient.: Yes I have reviewed all pertinent clinical information: Yes Notes (Text): Pt was seen and examined at bedside Agree with above note and assessment Pt with Enteritis and Resolving PSBO Abdomen: soft, non tender Labs and radiology reviewed DC NG tube clear liquid diet c.w IV antibiotics Plan d.w pt in detail Risk and benefit explained in detail.
--- NOTE | 2017-07-18 08:57 | CP.PCM.HP ---
History of Present Illness - History of Present Illness History of Present Illness: Patient seen and examined with Dr. Aiken. Austyn is a 77 y/o male with a past medical history of end stage renal disease ( on dialysis), HTN presented with abdominal pain, nausea, vomiting, which started during dialysis. With a reported 6 episodes of watery non-bloody non- bilious emesis. Diffuse abdominal pain. He had NG tube placed last night, feeling better this morning. NG tube remains in place. Abdomen is soft, nontender to palpation this morning. Patient denies h/a, dizziness, chest pain, dyspnea, nausea, vomiting, bowel movement, pedal edema today. PMH: ESRD on HD, HTN, HLD PSHx: LUE AV fistula MEdications: reviewed Allergies : NKDA Present on Admission - Present on Admission Any Indicators Present on Admission: Yes History of DVT/PE: Yes Past Patient History - Past Medical History & Family History Past Medical History?: Yes - Past Social History Smoking Status: Never Smoked - CARDIAC Hx Atrial Fibrillation: Yes Hx Congestive Heart Failure: Yes Hx Hypercholesterolemia: Yes Hx Hypertension: Yes - PULMONARY Hx Respiratory Disorders: No - NEUROLOGICAL Hx Neurological Disorder: No - HEENT Hx HEENT Problems: No - RENAL Hx Chronic Kidney Disease: Yes Hx Dialysis: Yes (//sat) Type of Dialysis Access: left av shunt Date of Last Dialysis Treatment: 07/17/17 Other/Comment: esrd on hd - ENDOCRINE/METABOLIC Hx Endocrine Disorders: No - HEMATOLOGICAL/ONCOLOGICAL Hx AIDS: No Hx Human Immunodeficiency Virus (HIV): No - INTEGUMENTARY Hx Dermatological Problems: No - MUSCULOSKELETAL/RHEUMATOLOGICAL Hx Falls: No - GASTROINTESTINAL Hx Pancreatitis: Yes - GENITOURINARY/GYNECOLOGICAL Other/Comment: renal failure - PSYCHIATRIC Hx Psychophysiologic Disorder: No Hx Substance Use: No - SURGICAL HISTORY Hx Appendectomy: Yes Hx Cholecystectomy: Yes Hx Herniorrhaphy: Yes - ANESTHESIA Hx Anesthesia: Yes Hx Anesthesia Reactions: No Hx Malignant Hyperthermia: No Meds Allergies/Adverse Reactions: Allergies Allergy/AdvReac Type Severity Reaction Status Date / Time No Known Allergies Allergy Verified 05/30/16 09:50 Physical Exam - Constitutional Appears: Non-toxic, No Acute Distress (appears uncomfortable, NG tube in place) - Respiratory Exam Respiratory Exam: Clear to Auscultation Bilateral, NORMAL BREATHING PATTERN - Cardiovascular Exam Cardiovascular Exam: +S1, +S2 - GI/Abdominal Exam GI & Abdominal Exam: Diminished Bowel Sounds, Distended, Soft. absent: Guarding , Rebound, Tenderness - Rectal Exam Rectal Exam: Deferred - Neurological Exam Neurological exam: Alert, CN II-XII Intact - Psychiatric Exam Psychiatric exam: Normal Affect, Normal Mood Results - Vital Signs Recent Vital Signs: Last Vital Signs Temp 98.2 F 07/18/17 08:11 Pulse 81 07/18/17 08:11 Resp 20 07/18/17 08:11 BP 163/81 H 07/18/17 08:11 Pulse Ox 93 L 07/18/17 08:11 - Labs Result Diagrams: 07/17/17 22:10 07/17/17 22:10 Labs: Laboratory Results - last 24 hr 07/17/17 07/17/17 07/17/17 22:10 22:10 22:10 WBC 17.8 H D RBC 4.14 L Hgb 11.7 L Hct 35.7 MCV 86.2 D MCH 28.1 MCHC 32.7 L RDW 14.4 Plt Count 193 MPV 8.3 Neut % (Auto) 87.9 H Lymph % (Auto) 6.2 L [place] % (Auto) 5.7 Eos % (Auto) 0.0 Baso % (Auto) 0.2 Neut # 15.7 H Lymph # 1.1 [place] # 1.0 H Eos # 0.0 Baso # 0.0 Neutrophils % (Manual) 81 H Band Neutrophils % 4 H Lymphocytes % (Manual) 9 L Monocytes % (Manual) 6 Platelet Estimate Normal Hypochromasia (manual) Slight Anisocytosis (manual) Moderate pO2 VBG pH VBG pCO2 VBG HCO3 VBG Total CO2 VBG O2 Sat (Calc) VBG Base Excess VBG Potassium Glucose Lactate FiO2 Sodium 135 Potassium 3.7 Chloride 94 L Carbon Dioxide 30 Anion Gap 15 BUN 20 Creatinine 4.4 H Est GFR ( Amer) 16 Est GFR (Non-Af Amer) 13 Random Glucose 119 H Calcium 8.8 Total Bilirubin 1.0 AST 34 ALT 24 Alkaline Phosphatase 108 Troponin I 0.0310 Total Protein 7.3 Albumin 4.1 Globulin 3.2 Albumin/Globulin Ratio 1.3 Venous Blood Potassium Blood Type A POSITIVE Antibody Screen Negative BBK History Checked Patient has bt 07/17/17 23:43 WBC RBC Hgb Hct MCV MCH MCHC RDW Plt Count MPV Neut % (Auto) Lymph % (Auto) [place] % (Auto) Eos % (Auto) Baso % (Auto) Neut # Lymph # [place] # Eos # Baso # Neutrophils % (Manual) Band Neutrophils % Lymphocytes % (Manual) Monocytes % (Manual) Platelet Estimate Hypochromasia (manual) Anisocytosis (manual) pO2 47 VBG pH 7.50 H VBG pCO2 43 VBG HCO3 31.8 VBG Total CO2 34.8 H VBG O2 Sat (Calc) 91.7 H VBG Base Excess 9.2 H VBG Potassium 3.4 L Glucose 106 Lactate 0.8 FiO2 21.0 Sodium 134.0 Potassium Chloride 99.0 Carbon Dioxide Anion Gap BUN Creatinine Est GFR ( Amer) Est GFR (Non-Af Amer) Random Glucose Calcium Total Bilirubin AST ALT Alkaline Phosphatase Troponin I Total Protein Albumin Globulin Albumin/Globulin Ratio Venous Blood Potassium 3.4 L Blood Type Antibody Screen BBK History Checked Assessment & Plan (1) Abdominal pain Assessment and Plan: 77 year old male presented with abdominal pain admitted due to possible SBO vs illeus, with leukocytosis. He has not had any vomiting. He currently has an NG tube in place, to suction. His abdominal distention has improved slightly, as per patient. He is lying in bed in no apparent distress. Labs: Leukocytosis of 17.8, normocytic anemia, H, no metabolic derangements. Imaging: -CT A/P: 07/17:Small bowel dilatation with mural thickening and distal decompression, findings consistent with small bowel obstruction. Transition point is detected in the mid to distal jejunum. IVC filter -XR 07/18: Consider small bowel ileus versus intermittent or partial distal small bowel obstruction. Patient is NPO, zofran for nausea/vomiting, IVF Consults: Surgery GI Nephrology Status: Acute (2) End stage renal disease on dialysis Assessment and Plan: management as per nephrology Status: Chronic (3) HTN (hypertension) Assessment and Plan: monitor -home meds held due NPO Status: Acute (4) DVT prophylaxis Assessment and Plan: heparin 5000 units sc q 8 Status: Acute
[2017-07-18] MEDS ORDERED: metroNIDAZOLE 500mg/100ml NS 100 ML IVPB SCH (09:00)
--- NOTE | 2017-07-18 09:39 | CP.PCM.CON ---
History of Present Illness - History of Present Illness History of Present Illness: dictated Past Patient History - Past Medical History & Family History Past Medical History?: Yes - Past Social History Smoking Status: Never Smoked - CARDIAC Hx Congestive Heart Failure: Yes Hx Hypercholesterolemia: Yes Hx Hypertension: Yes - PULMONARY Hx Respiratory Disorders: Yes - NEUROLOGICAL Hx Neurological Disorder: No - HEENT Hx HEENT Problems: No - RENAL Hx Chronic Kidney Disease: Yes - ENDOCRINE/METABOLIC Hx Endocrine Disorders: No - HEMATOLOGICAL/ONCOLOGICAL Hx Blood Disorders: No - INTEGUMENTARY Hx Dermatological Problems: No - MUSCULOSKELETAL/RHEUMATOLOGICAL Hx Musculoskeletal Disorders: No Hx Falls: No - GASTROINTESTINAL Hx Pancreatitis: Yes - GENITOURINARY/GYNECOLOGICAL Other/Comment: renal failure - PSYCHIATRIC Hx Psychophysiologic Disorder: No Hx Emotional Abuse: No Hx Physical Abuse: No Hx Substance Use: No - SURGICAL HISTORY Hx Appendectomy: Yes Hx Cholecystectomy: Yes - ANESTHESIA Hx Anesthesia: Yes Hx Anesthesia Reactions: No Hx Malignant Hyperthermia: No Meds Allergies/Adverse Reactions: Allergies Allergy/AdvReac Type Severity Reaction Status Date / Time No Known Allergies Allergy Verified 05/30/16 09:50 - Medications Medications: Current Medications Heparin Sodium (Porcine) (Heparin) 5,000 units SC Q8 RIVERA PRN Reason: Protocol Ciprofloxacin (Cipro 400mg/200ml Dsw) 400 mg in 200 mls @ 200 mls/hr IVPB Q12 RIVERA PRN Reason: Protocol Metronidazole (Flagyl 500mg/100ml Ns) 100 mls @ 100 mls/hr IVPB Q8 RIVERA PRN Reason: Protocol Potassium Chloride/Sodium Chloride (Potassium Chl 20 Meq In Ns) 1,000 mls @ 50 mls/hr IV .Q20H RIVERA Stop: 07/19/17 09:10 Ondansetron HCl (Zofran Inj) 4 mg IVP Q6 PRN PRN Reason: Nausea/Vomiting Results - Vital Signs Recent Vital Signs: Last Vital Signs Temp 98.2 F 07/18/17 08:11 Pulse 81 07/18/17 08:11 Resp 20 07/18/17 08:11 BP 163/81 H 07/18/17 08:11 Pulse Ox 93 L 07/18/17 08:11 - Labs Result Diagrams: 07/17/17 22:10 07/17/17 22:10 Labs: Laboratory Results - last 24 hr 07/17/17 07/17/17 07/17/17 22:10 22:10 22:10 WBC 17.8 H D RBC 4.14 L Hgb 11.7 L Hct 35.7 MCV 86.2 D MCH 28.1 MCHC 32.7 L RDW 14.4 Plt Count 193 MPV 8.3 Neut % (Auto) 87.9 H Lymph % (Auto) 6.2 L [place] % (Auto) 5.7 Eos % (Auto) 0.0 Baso % (Auto) 0.2 Neut # 15.7 H Lymph # 1.1 [place] # 1.0 H Eos # 0.0 Baso # 0.0 Neutrophils % (Manual) 81 H Band Neutrophils % 4 H Lymphocytes % (Manual) 9 L Monocytes % (Manual) 6 Platelet Estimate Normal Hypochromasia (manual) Slight Anisocytosis (manual) Moderate pO2 VBG pH VBG pCO2 VBG HCO3 VBG Total CO2 VBG O2 Sat (Calc) VBG Base Excess VBG Potassium Glucose Lactate FiO2 Sodium 135 Potassium 3.7 Chloride 94 L Carbon Dioxide 30 Anion Gap 15 BUN 20 Creatinine 4.4 H Est GFR ( Amer) 16 Est GFR (Non-Af Amer) 13 Random Glucose 119 H Calcium 8.8 Total Bilirubin 1.0 AST 34 ALT 24 Alkaline Phosphatase 108 Troponin I 0.0310 Total Protein 7.3 Albumin 4.1 Globulin 3.2 Albumin/Globulin Ratio 1.3 Venous Blood Potassium Blood Type A POSITIVE Antibody Screen Negative BBK History Checked Patient has bt 07/17/17 23:43 WBC RBC Hgb Hct MCV MCH MCHC RDW Plt Count MPV Neut % (Auto) Lymph % (Auto) [place] % (Auto) Eos % (Auto) Baso % (Auto) Neut # Lymph # [place] # Eos # Baso # Neutrophils % (Manual) Band Neutrophils % Lymphocytes % (Manual) Monocytes % (Manual) Platelet Estimate Hypochromasia (manual) Anisocytosis (manual) pO2 47 VBG pH 7.50 H VBG pCO2 43 VBG HCO3 31.8 VBG Total CO2 34.8 H VBG O2 Sat (Calc) 91.7 H VBG Base Excess 9.2 H VBG Potassium 3.4 L Glucose 106 Lactate 0.8 FiO2 21.0 Sodium 134.0 Potassium Chloride 99.0 Carbon Dioxide Anion Gap BUN Creatinine Est GFR ( Amer) Est GFR (Non-Af Amer) Random Glucose Calcium Total Bilirubin AST ALT Alkaline Phosphatase Troponin I Total Protein Albumin Globulin Albumin/Globulin Ratio Venous Blood Potassium 3.4 L Blood Type Antibody Screen BBK History Checked
--- NOTE | 2017-07-18 10:07 | RAD ---
HISTORY: NGT placement COMPARISON: Abdomen KUB 10/27/2015. FINDINGS: BOWEL: There is moderate distention of a few central small bowel loops however oral contrast is identified scattered throughout the large bowel including the rectum. Large bowel is predominantly collapsed. Oral contrast is identified within a few small-bowel loops at the left eliseo abdomen and right flank. A nasogastric tube is also identified placed with the tip turning the left upper quadrant abdomen with the side hole approximating the esophagogastric junction. Advancement of the catheter further into the stomach is advised another 10-15 cm. Bowel gas pattern likely reflects a moderate small-bowel ileus although intermittent or partial distal small bowel obstruction is difficult to completely exclude. Continued clinical and radiographic monitoring are advised. An inferior vena cava filter is again appreciated placed. Surgical clips are again seen the right upper quadrant abdomen. BONES: Normal. OTHER FINDINGS: None. IMPRESSION: 1. Consider small bowel ileus versus intermittent or partial distal small bowel obstruction. Continued clinical and radiographic monitoring are advised. 2. NG tube terminates in a position the places the side hole at the level the esophagogastric junction. Advancement of the catheter further 10-15 cm into the stomach is recommended. Confirmation abdomen KUB is recommended post adjustment.
--- NOTE | 2017-07-18 10:53 | CP.PCM.CON ---
<April Stinson - Last Filed: 07/18/17 18:37> History of Present Illness - History of Present Illness History of Present Illness: PGY4 Initial GI Consult Austyn Soto is a 77M w/ hx of CHF, ESRD on HD, who presented to the Er with complaints of abdominal pain during dialysis yesterday. CT abd w/ IV contrast revealed a transition point at the jejunum and possible SBO vs ileus. He had an NG placed overnight and outpt was 200cc. He reports 6 episodes of watery non- bloody non-bilious emesis. Abdominal pain is described as diffuse and in all quadrants with no radiation. His pain gradually improved No bowel movements in 2 days. Denies any BRBPR, melena, hematemesis or coffee-ground emesis. Pt had a colonscopy in 2015 which revealed sigmoid diverticuli and at the time it was recommended that he have a 5 year repeat. He had a BM yesterday and admits to flatus in the AM. His abd pain eventually resolved. An abd xray eventually revealed PO contrast in the rectum. The NG was eventually withdrawn and he was tolerating a clear liquid diet. PMHx: CAD CHF HTN HLD ESRD A Fib PSHx: LUE AV fistula FHx: No family history of GI problems SHx: denies EtOH, denies tobacco, no drugs ROS A comprehensive review of systems was performed and was negative apart from HPI Past Patient History - Past Medical History & Family History Past Medical History?: Yes - Past Social History Smoking Status: Never Smoked - CARDIAC Hx Congestive Heart Failure: Yes Hx Hypercholesterolemia: Yes Hx Hypertension: Yes - PULMONARY Hx Respiratory Disorders: Yes - NEUROLOGICAL Hx Neurological Disorder: No - HEENT Hx HEENT Problems: No - RENAL Hx Chronic Kidney Disease: Yes - ENDOCRINE/METABOLIC Hx Endocrine Disorders: No - HEMATOLOGICAL/ONCOLOGICAL Hx Blood Disorders: No - INTEGUMENTARY Hx Dermatological Problems: No - MUSCULOSKELETAL/RHEUMATOLOGICAL Hx Musculoskeletal Disorders: No Hx Falls: No - GASTROINTESTINAL Hx Pancreatitis: Yes - GENITOURINARY/GYNECOLOGICAL Other/Comment: renal failure - PSYCHIATRIC Hx Psychophysiologic Disorder: No Hx Emotional Abuse: No Hx Physical Abuse: No Hx Substance Use: No - SURGICAL HISTORY Hx Appendectomy: Yes Hx Cholecystectomy: Yes - ANESTHESIA Hx Anesthesia: Yes Hx Anesthesia Reactions: No Hx Malignant Hyperthermia: No Meds Allergies/Adverse Reactions: Allergies Allergy/AdvReac Type Severity Reaction Status Date / Time No Known Allergies Allergy Verified 05/30/16 09:50 - Medications Medications: Current Medications Heparin Sodium (Porcine) (Heparin) 5,000 units SC Q8 RIVERA PRN Reason: Protocol Ciprofloxacin (Cipro 400mg/200ml Dsw) 400 mg in 200 mls @ 200 mls/hr IVPB Q12 RIVERA PRN Reason: Protocol Metronidazole (Flagyl 500mg/100ml Ns) 100 mls @ 100 mls/hr IVPB Q8 RIVERA PRN Reason: Protocol Potassium Chloride/Sodium Chloride (Potassium Chl 20 Meq In Ns) 1,000 mls @ 50 mls/hr IV .Q20H [facility] Stop: 07/19/17 09:10 Ondansetron HCl (Zofran Inj) 4 mg IVP Q6 PRN PRN Reason: Nausea/Vomiting Physical Exam - Constitutional Appears: Non-toxic, No Acute Distress - Head Exam Head Exam: ATRAUMATIC, NORMOCEPHALIC - Eye Exam Eye Exam: Normal appearance - ENT Exam ENT Exam: Mucous Membranes Moist - Respiratory Exam Respiratory Exam: Clear to Auscultation Bilateral, NORMAL BREATHING PATTERN. absent: Rales, Rhonchi, Wheezes, Respiratory Distress - Cardiovascular Exam Cardiovascular Exam: REGULAR RHYTHM, +S1, +S2 - GI/Abdominal Exam GI & Abdominal Exam: Hypoactive Bowel Sounds, Soft. absent: Distended, Firm, Guarding - Extremities Exam Extremities exam: Negative for: joint swelling, pedal edema - Neurological Exam Neurological exam: Alert, Oriented x3 - Psychiatric Exam Psychiatric exam: Normal Affect, Normal Mood - Skin Skin Exam: Dry, Intact, Normal Color, Warm Results - Vital Signs Recent Vital Signs: Last Vital Signs Temp 98.2 F 07/18/17 08:11 Pulse 81 07/18/17 08:11 Resp 20 07/18/17 08:11 BP 163/81 H 07/18/17 08:11 Pulse Ox 93 L 07/18/17 08:11 - Labs Result Diagrams: 07/17/17 22:10 07/17/17 22:10 Labs: Laboratory Results - last 24 hr 07/17/17 07/17/17 07/17/17 22:10 22:10 22:10 WBC 17.8 H D RBC 4.14 L Hgb 11.7 L Hct 35.7 MCV 86.2 D MCH 28.1 MCHC 32.7 L RDW 14.4 Plt Count 193 MPV 8.3 Neut % (Auto) 87.9 H Lymph % (Auto) 6.2 L [place] % (Auto) 5.7 Eos % (Auto) 0.0 Baso % (Auto) 0.2 Neut # 15.7 H Lymph # 1.1 [place] # 1.0 H Eos # 0.0 Baso # 0.0 Neutrophils % (Manual) 81 H Band Neutrophils % 4 H Lymphocytes % (Manual) 9 L Monocytes % (Manual) 6 Platelet Estimate Normal Hypochromasia (manual) Slight Anisocytosis (manual) Moderate pO2 VBG pH VBG pCO2 VBG HCO3 VBG Total CO2 VBG O2 Sat (Calc) VBG Base Excess VBG Potassium Glucose Lactate FiO2 Sodium 135 Potassium 3.7 Chloride 94 L Carbon Dioxide 30 Anion Gap 15 BUN 20 Creatinine 4.4 H Est GFR ( Amer) 16 Est GFR (Non-Af Amer) 13 Random Glucose 119 H Calcium 8.8 Total Bilirubin 1.0 AST 34 ALT 24 Alkaline Phosphatase 108 Troponin I 0.0310 Total Protein 7.3 Albumin 4.1 Globulin 3.2 Albumin/Globulin Ratio 1.3 Venous Blood Potassium Blood Type A POSITIVE Antibody Screen Negative BBK History Checked Patient has bt 07/17/17 23:43 WBC RBC Hgb Hct MCV MCH MCHC RDW Plt Count MPV Neut % (Auto) Lymph % (Auto) [place] % (Auto) Eos % (Auto) Baso % (Auto) Neut # Lymph # [place] # Eos # Baso # Neutrophils % (Manual) Band Neutrophils % Lymphocytes % (Manual) Monocytes % (Manual) Platelet Estimate Hypochromasia (manual) Anisocytosis (manual) pO2 47 VBG pH 7.50 H VBG pCO2 43 VBG HCO3 31.8 VBG Total CO2 34.8 H VBG O2 Sat (Calc) 91.7 H VBG Base Excess 9.2 H VBG Potassium 3.4 L Glucose 106 Lactate 0.8 FiO2 21.0 Sodium 134.0 Potassium Chloride 99.0 Carbon Dioxide Anion Gap BUN Creatinine Est GFR ( Amer) Est GFR (Non-Af Amer) Random Glucose Calcium Total Bilirubin AST ALT Alkaline Phosphatase Troponin I Total Protein Albumin Globulin Albumin/Globulin Ratio Venous Blood Potassium 3.4 L Blood Type Antibody Screen BBK History Checked Assessment & Plan - Assessment and Plan (Free Text) Assessment: Austyn Soto is a 77M w/ hx of CHF, ESRD on HD, HL who presented to the ED with abd pain. CT revealed SBO vs small bowel ilieus. Abdominal Pin Small Bowel Ilieus ESRD on HD Plan: -NG clamped by surgery -tolerating clears -advance as tolerated -ct revealed thickening of the duodenum and jejunal thickening -recommend EGD as an outpt -no need for colonoscopy at this time -no plan for any lumenal study at this time -will sign off -please reconsult if needed D/W Dr. White <Cindy CURTIS,Clay - Last Filed: 07/19/17 13:32> Meds - Medications Medications: Current Medications Gabapentin (Neurontin) 100 mg PO TID [facility] Last Admin: 07/19/17 10:03 Dose: 100 mg Heparin Sodium (Porcine) (Heparin) 5,000 units SC Q8@0500,1300,2100 RIVERA PRN Reason: Protocol Last Admin: 07/19/17 05:45 Dose: 5,000 units Home Med (Linaclotide [Linzess]) 145 mcg PO DAILY [facility] Ciprofloxacin (Cipro 400mg/200ml Dsw) 400 mg in 200 mls @ 200 mls/hr IVPB Q12@ 0200,1400 RIVERA PRN Reason: Protocol Last Admin: 07/19/17 01:19 Dose: 200 mls/hr Metronidazole (Flagyl) 500 mg PO Q8 RIVERA PRN Reason: Protocol Last Admin: 07/19/17 10:04 Dose: 500 mg Multivitamins/Minerals (Therapeutic-M Tab) 1 tab PO DAILY [facility] Last Admin: 07/19/17 10:03 Dose: 1 tab Ondansetron HCl (Zofran Inj) 4 mg IVP Q4 PRN PRN Reason: Nausea/Vomiting Valsartan (Diovan) 160 mg PO DAILY [facility] Last Admin: 07/19/17 10:04 Dose: Not Given Zolpidem Tartrate (Ambien) 5 mg PO HS PRN PRN Reason: Insomnia Last Admin: 07/18/17 22:36 Dose: 5 mg Results - Vital Signs Recent Vital Signs: Last Vital Signs Temp 98.3 F 07/19/17 08:23 Pulse 72 07/19/17 08:23 Resp 20 07/19/17 08:23 BP 152/80 H 07/19/17 08:23 Pulse Ox 95 07/19/17 08:23 - Labs Result Diagrams: 07/19/17 06:00 07/19/17 06:00 Labs: Laboratory Results - last 24 hr 07/19/17 07/19/17 06:00 06:00 WBC 5.3 D RBC 3.66 L Hgb 10.5 L Hct 32.0 L MCV 87.3 MCH 28.6 MCHC 32.7 L RDW 14.4 Plt Count 163 Sodium 134 Potassium 3.9 Chloride 95 L Carbon Dioxide 28 Anion Gap 15 BUN 34 H Creatinine 7.9 H* D Est GFR ( Amer) 8 Est GFR (Non-Af Amer) 7 Random Glucose 83 Calcium 8.1 L Attending/Attestation - Attestation I have personally seen and examined this patient.: Yes I have fully participated in the care of the patient.: Yes I have reviewed all pertinent clinical information: Yes Notes (Text): 07/19/17 13:30 Patient seen at bedside with Gi fellow yesterday. late entry. This is a 77 yr old M w/ hx of CHF, ESRD on HD, HL who presented to the ED with abdominal pain due to ileus. Patient was passing flatus bowel movement. Likely due to constipation. Start bowel regimen with miralax. No s/s of SBO. Clear liquid diet. Advance as tolerated.
[2017-07-18 11:03] LABS: AMYLASE 96 U/L (30-110); LIPASE 60 U/L (23-300)
[2017-07-18] MEDS: Ciprofloxacin 400mg/200ml D5W 400 MG/200 ML BAG IVPB SCH ×2 (14:10→21:00)
[2017-07-18] MEDS: Potassium Chl 20 mEq in NS 1,000 ML IV SCH (14:11)
--- NOTE | 2017-07-18 16:05 | CON ---
DATE: REQUESTING PHYSICIAN: . HISTORY OF PRESENT ILLNESS: This patient is 77 years of age, gentleman, know to me with history of chronic end-stage renal disease, on maintenance hemodialysis. The patient goes to dialysis at [facility]. The patient came after dialysis after having couple episodes of vomiting and abdominal pain and he was sent to the ER and admitted for further evaluation. The patient this morning appeared to be much better although he has NG tube in place. PAST MEDICAL HISTORY: Significant for multiple admissions related to end-stage renal disease, dialysis Saturday, Saturday and Saturday. History of AFib and history of hypertension. He has been admitted in [facility] previously for diverticulitis and pancreatitis. REVIEW OF SYSTEMS: Review of the 12 systems as noted is acceptable except what I mentioned above. SOCIAL HISTORY: Unremarkable. PHYSICAL EXAMINATION GENERAL: He is conscious, alert, not in any distress. VITAL SIGNS: Blood pressure 163/81, 154/75; pulse 81 with temperature 98.2. NECK: Supple. CHEST: Clear. HEART: No rubs. ABDOMEN: Soft. Bowel sounds were active. EXTREMITIES: No edema. LABORATORY DATA: Showed WBC 17.8, hemoglobin 11. Electrolytes: Sodium 135, creatinine 4.4 and this has been done post hemodialysis when he came out of dialysis. His liver enzymes are unremarkable. IMPRESSION AND PLAN: The patient was admitted with abdominal pain, rule out pancreatitis because of the previous history. My recommendation suggests to do amylase and lipase. In addition to the end-stage, we will proceed with dialysis for tomorrow as scheduled and I ordered IV fluid and D5 half-normal at 50 mL/hour because he is having NG tube. Bryn Hodges MD
[2017-07-19] MEDS ORDERED: Ciprofloxacin 400mg/200ml D5W 400 MG/200 ML BAG IVPB SCH (02:00)
[2017-07-19] MEDS: Potassium Chl 20 mEq in NS 1,000 ML IV SCH (06:46)
[2017-07-19 07:06] LABS: MEAN CELL VOLUME 87.3 fl (80.0-94.0); MEAN CORPUSCULAR HEMOGLOBIN 28.6 pg (27.0-31.0); MEAN CORPUSCULAR HGB CONC 32.7 g/dL (33.0-37.0); RED CELL DISTRIBUTION WIDTH 14.4 % (11.5-14.5); WHITE BLOOD COUNT 5.3 K/uL (4.8-10.8)
[2017-07-19 07:36] LABS: CALCIUM 8.1 mg/dL (8.4-10.2); POTASSIUM 3.9 MMOL/L (3.6-5.0)
--- NOTE | 2017-07-19 08:05 | CP.PCM.PN ---
<April Stinson - Last Filed: 07/19/17 09:21> Subjective - Date & Time of Evaluation Date of Evaluation: 07/19/17 Time of Evaluation: 08:00 - Subjective Subjective: PGY4 GI follow-up Pt seen and examined bedside no complaints tolerating reg diet denies any abd pain NG removed +flatus, + BM last night ROS: 10 point ROS conducted, neg other than above Objective - Vital Signs/Intake and Output Vital Signs (last 24 hours): Temp Pulse Resp BP Pulse Ox 98.1 F 66 20 143/71 99 07/19/17 05:00 07/19/17 01:29 07/19/17 01:29 07/19/17 01:29 07/19/17 01:29 - Medications Medications: Current Medications Gabapentin (Neurontin) 100 mg PO TID [facility] Heparin Sodium (Porcine) (Heparin) 5,000 units SC Q8@0500,1300,2100 [facility] PRN Reason: Protocol Last Admin: 07/19/17 05:45 Dose: 5,000 units Home Med (Linaclotide [Linzess]) 145 mcg PO DAILY [facility] Potassium Chloride/Sodium Chloride (Potassium Chl 20 Meq In Ns) 1,000 mls @ 50 mls/hr IV .Q20H [facility] Stop: 07/19/17 09:10 Last Admin: 07/19/17 06:46 Dose: 50 mls/hr Ciprofloxacin (Cipro 400mg/200ml Dsw) 400 mg in 200 mls @ 200 mls/hr IVPB Q12@ 0200,1400 [facility] PRN Reason: Protocol Last Admin: 07/19/17 01:19 Dose: 200 mls/hr Metronidazole (Flagyl) 500 mg PO Q8 [facility] PRN Reason: Protocol Last Admin: 07/19/17 01:17 Dose: 500 mg Multivitamins/Minerals (Therapeutic-M Tab) 1 tab PO DAILY [facility] Ondansetron HCl (Zofran Inj) 4 mg IVP Q4 PRN PRN Reason: Nausea/Vomiting Valsartan (Diovan) 160 mg PO DAILY [facility] Zolpidem Tartrate (Ambien) 5 mg PO HS PRN PRN Reason: Insomnia Last Admin: 07/18/17 22:36 Dose: 5 mg - Labs Labs: 07/19/17 06:00 07/19/17 06:00 - Constitutional Appears: Well, No Acute Distress - Head Exam Head Exam: ATRAUMATIC, NORMOCEPHALIC - Eye Exam Eye Exam: Normal appearance - ENT Exam ENT Exam: Mucous Membranes Moist - Respiratory Exam Respiratory Exam: Clear to Ausculation Bilateral, NORMAL BREATHING PATTERN. absent: Rales, Rhonchi, Wheezes, Respiratory Distress - Cardiovascular Exam Cardiovascular Exam: REGULAR RHYTHM, +S1, +S2 - GI/Abdominal Exam GI & Abdominal Exam: Soft, Normal Bowel Sounds. absent: Guarding, Rigid, Organomegaly, Rebound - Extremities Exam Extremities Exam: absent: Joint Swelling, Pedal Edema - Neurological Exam Neurological Exam: Alert, Awake, Oriented x3 - Psychiatric Exam Psychiatric exam: Normal Affect, Normal Mood - Skin Skin Exam: Dry, Intact, Normal Color, Warm Assessment and Plan - Assessment and Plan (Free Text) Assessment: Austyn Soto is a 77M w/ hx of CHF, ESRD on HD, HL who presented to the ED with abd pain. CT revealed likely small bowel ilieus. Abdominal Pin Small Bowel Ilieus ESRD on HD Plan: -advance diet as tolerated -ct revealed thickening of the duodenum and jejunal thickening -recommend EGD as an outpt -no need for colonoscopy at this time -no plan for any lumenal study at this time -recommend pt move out of bed -PT/OT -will sign off -please reconsult if needed D/W Dr. White <Cindy CURTIS,Clay - Last Filed: 07/19/17 13:32> Objective - Vital Signs/Intake and Output Vital Signs (last 24 hours): Temp Pulse Resp BP Pulse Ox 98.3 F 72 20 152/80 H 95 07/19/17 08:23 07/19/17 08:23 07/19/17 08:23 07/19/17 08:23 07/19/17 08:23 - Medications Medications: Current Medications Gabapentin (Neurontin) 100 mg PO TID [facility] Last Admin: 07/19/17 10:03 Dose: 100 mg Heparin Sodium (Porcine) (Heparin) 5,000 units SC Q8@0500,1300,2100 [facility] PRN Reason: Protocol Last Admin: 07/19/17 05:45 Dose: 5,000 units Home Med (Linaclotide [Linzess]) 145 mcg PO DAILY [facility] Ciprofloxacin (Cipro 400mg/200ml Dsw) 400 mg in 200 mls @ 200 mls/hr IVPB Q12@ 0200,1400 [facility] PRN Reason: Protocol Last Admin: 07/19/17 01:19 Dose: 200 mls/hr Metronidazole (Flagyl) 500 mg PO Q8 [facility] PRN Reason: Protocol Last Admin: 07/19/17 10:04 Dose: 500 mg Multivitamins/Minerals (Therapeutic-M Tab) 1 tab PO DAILY [facility] Last Admin: 07/19/17 10:03 Dose: 1 tab Ondansetron HCl (Zofran Inj) 4 mg IVP Q4 PRN PRN Reason: Nausea/Vomiting Valsartan (Diovan) 160 mg PO DAILY [facility] Last Admin: 07/19/17 10:04 Dose: Not Given Zolpidem Tartrate (Ambien) 5 mg PO HS PRN PRN Reason: Insomnia Last Admin: 07/18/17 22:36 Dose: 5 mg - Labs Labs: 07/19/17 06:00 07/19/17 06:00 Attending/Attestation - Attestation I have personally seen and examined this patient.: Yes I have fully participated in the care of the patient.: Yes I have reviewed all pertinent clinical information, including history, physical exam and plan: Yes Notes (Text): 07/19/17 13:32 Patient seen at bedside with Gi fellow yesterday. late entry. This is a 77 yr old M w/ hx of CHF, ESRD on HD, HL who presented to the ED with abdominal pain due to ileus. Patient was passing flatus bowel movement. Likely due to constipation. Start bowel regimen with miralax. No s/s of SBO. Clear liquid diet. Advance as tolerated.
--- NOTE | 2017-07-19 08:23 | CP.PCM.PN ---
<Serafin Saul - Last Filed: 07/19/17 08:20> Subjective - Date & Time of Evaluation Date of Evaluation: 07/19/17 Time of Evaluation: 06:50 - Subjective Subjective: General Surgery- Dr. Hernandez Patient seen and examined at bedside this morning. No acute events overnight. denies pain, tolerating current diet. passing flatus, + bowel movement. Denies fevers, chills, chest pain, shortness of breath, nausea, vomiting, diarrhea. Objective - Vital Signs/Intake and Output Vital Signs (last 24 hours): Temp Pulse Resp BP Pulse Ox 98.1 F 66 20 143/71 99 07/19/17 05:00 07/19/17 01:29 07/19/17 01:29 07/19/17 01:29 07/19/17 01:29 - Medications Medications: Current Medications Gabapentin (Neurontin) 100 mg PO TID [facility] Heparin Sodium (Porcine) (Heparin) 5,000 units SC Q8@0500,1300,2100 [facility] PRN Reason: Protocol Last Admin: 07/19/17 05:45 Dose: 5,000 units Home Med (Linaclotide [Linzess]) 145 mcg PO DAILY [facility] Potassium Chloride/Sodium Chloride (Potassium Chl 20 Meq In Ns) 1,000 mls @ 50 mls/hr IV .Q20H [facility] Stop: 07/19/17 09:10 Last Admin: 07/19/17 06:46 Dose: 50 mls/hr Ciprofloxacin (Cipro 400mg/200ml Dsw) 400 mg in 200 mls @ 200 mls/hr IVPB Q12@ 0200,1400 [facility] PRN Reason: Protocol Last Admin: 07/19/17 01:19 Dose: 200 mls/hr Metronidazole (Flagyl) 500 mg PO Q8 [facility] PRN Reason: Protocol Last Admin: 07/19/17 01:17 Dose: 500 mg Multivitamins/Minerals (Therapeutic-M Tab) 1 tab PO DAILY [facility] Ondansetron HCl (Zofran Inj) 4 mg IVP Q4 PRN PRN Reason: Nausea/Vomiting Valsartan (Diovan) 160 mg PO DAILY [facility] Zolpidem Tartrate (Ambien) 5 mg PO HS PRN PRN Reason: Insomnia Last Admin: 07/18/17 22:36 Dose: 5 mg - Labs Labs: 07/19/17 06:00 07/19/17 06:00 - Constitutional Appears: Non-toxic, No Acute Distress - Head Exam Head Exam: ATRAUMATIC - Eye Exam Eye Exam: EOMI. absent: Scleral icterus - ENT Exam ENT Exam: Mucous Membranes Moist - Respiratory Exam Respiratory Exam: NORMAL BREATHING PATTERN. absent: Accessory Muscle Use, Respiratory Distress - Cardiovascular Exam Cardiovascular Exam: +S1, +S2. absent: Bradycardia, Tachycardia - GI/Abdominal Exam GI & Abdominal Exam: Soft. absent: Distended, Firm, Guarding, Rigid, Tenderness - Extremities Exam Extremities Exam: Calf Tenderness. absent: Normal Inspection - Neurological Exam Neurological Exam: Alert, Awake, Oriented x3 - Psychiatric Exam Psychiatric exam: Normal Affect - Skin Skin Exam: Normal Color, Warm Assessment and Plan - Assessment and Plan (Free Text) Assessment: 77M w/ abdominal pain; gastroenteritis Plan: - advance to regular diet - continue abx - no acute surgical intervention at this time - further recs per Dr. Hernandez <Ant Hernandez - Last Filed: 07/19/17 15:38> Objective - Vital Signs/Intake and Output Vital Signs (last 24 hours): Temp Pulse Resp BP Pulse Ox 98.3 F 72 20 152/80 H 95 07/19/17 08:23 07/19/17 08:23 07/19/17 08:23 07/19/17 08:23 07/19/17 08:23 - Medications Medications: Current Medications Gabapentin (Neurontin) 100 mg PO TID [facility] Last Admin: 07/19/17 13:50 Dose: 100 mg Heparin Sodium (Porcine) (Heparin) 5,000 units SC Q8@0500,1300,2100 [facility] PRN Reason: Protocol Last Admin: 07/19/17 13:47 Dose: 5,000 units Home Med (Linaclotide [Linzess]) 145 mcg PO DAILY [facility] Ciprofloxacin (Cipro 400mg/200ml Dsw) 400 mg in 200 mls @ 200 mls/hr IVPB Q12@ 0200,1400 [facility] PRN Reason: Protocol Last Admin: 07/19/17 01:19 Dose: 200 mls/hr Metronidazole (Flagyl) 500 mg PO Q8 [facility] PRN Reason: Protocol Last Admin: 07/19/17 10:04 Dose: 500 mg Multivitamins/Minerals (Therapeutic-M Tab) 1 tab PO DAILY [facility] Last Admin: 07/19/17 10:03 Dose: 1 tab Ondansetron HCl (Zofran Inj) 4 mg IVP Q4 PRN PRN Reason: Nausea/Vomiting Valsartan (Diovan) 160 mg PO DAILY [facility] Last Admin: 07/19/17 10:04 Dose: Not Given Zolpidem Tartrate (Ambien) 5 mg PO HS PRN PRN Reason: Insomnia Last Admin: 07/18/17 22:36 Dose: 5 mg - Labs Labs: 07/19/17 06:00 07/19/17 06:00 Attending/Attestation - Attestation I have personally seen and examined this patient.: Yes I have fully participated in the care of the patient.: Yes I have reviewed all pertinent clinical information, including history, physical exam and plan: Yes Notes (Text): Pt was seen and examined at bedside Agree with above note and assessment Pt with Gastroenteritis and resolved PSBO c/w IV antibiotics No acute surgical intervention required at present f.u prn as out pt Plan d.w pt in detail Risk and benefit explained in detail
[2017-07-19] MEDS ORDERED: Multivitamin With Minerals Tab PO SCH (09:00)
--- NOTE | 2017-07-19 12:03 | CP.PCM.DIS ---
Provider - Provider Date of Admission: 07/18/17 14:38 Attending physician: Ramon Aiken MD Consults: GI: Dr. White Surgery: Dr. Bermudez Time Spent in preparation of Discharge (in minutes): 35 Diagnosis - Discharge Diagnosis (1) Abdominal pain Status: Resolved Comment: SBO, resolved. tolerating regular diet (2) End stage renal disease on dialysis Status: Chronic Comment: dialysis today (3) HTN (hypertension) Status: Chronic (4) DVT prophylaxis Status: Resolved Hospital Course - Lab Results Lab Results: Most Recent Lab Values WBC 5.3 K/uL (4.8-10.8) D 07/19/17 06:00 RBC 3.66 Mil/uL (4.40-5.90) L 07/19/17 06:00 Hgb 10.5 g/dL (12.0-18.0) L 07/19/17 06:00 Hct 32.0 % (35.0-51.0) L 07/19/17 06:00 MCV 87.3 fl (80.0-94.0) 07/19/17 06:00 MCH 28.6 pg (27.0-31.0) 07/19/17 06:00 MCHC 32.7 g/dL (33.0-37.0) L 07/19/17 06:00 RDW 14.4 % (11.5-14.5) 07/19/17 06:00 Plt Count 163 K/uL (130-400) 07/19/17 06:00 MPV 8.3 fl (7.2-11.7) 07/17/17 22:10 Neut % (Auto) 87.9 % (50.0-75.0) H 07/17/17 22:10 Lymph % (Auto) 6.2 % (20.0-40.0) L 07/17/17 22:10 Ramsey % (Auto) 5.7 % (0.0-10.0) 07/17/17 22:10 Eos % (Auto) 0.0 % (0.0-4.0) 07/17/17 22:10 Baso % (Auto) 0.2 % (0.0-2.0) 07/17/17 22:10 Neut # 15.7 K/uL (1.8-7.0) H 07/17/17 22:10 Lymph # 1.1 K/uL (1.0-4.3) 07/17/17 22:10 Ramsey # 1.0 K/uL (0.0-0.8) H 07/17/17 22:10 Eos # 0.0 K/uL (0.0-0.7) 07/17/17 22:10 Baso # 0.0 K/uL (0.0-0.2) 07/17/17 22:10 Neutrophils % (Manual) 81 % (42-75) H 07/17/17 22:10 Band Neutrophils % 4 % (0-2) H 07/17/17 22:10 Lymphocytes % (Manual) 9 % (20-50) L 07/17/17 22:10 Monocytes % (Manual) 6 % (0-10) 07/17/17 22:10 Platelet Estimate Normal (NORMAL) 07/17/17 22:10 Hypochromasia (manual) Slight 07/17/17 22:10 Anisocytosis (manual) Moderate 07/17/17 22:10 pO2 47 mm/Hg (30-55) 07/17/17 23:43 VBG pH 7.50 (7.32-7.43) H 07/17/17 23:43 VBG pCO2 43 mmHg (40-60) 07/17/17 23:43 VBG HCO3 31.8 mmol/L 07/17/17 23:43 VBG Total CO2 34.8 mmol/L (22-28) H 07/17/17 23:43 VBG O2 Sat (Calc) 91.7 % (40-65) H 07/17/17 23:43 VBG Base Excess 9.2 mmol/L (0.0-2.0) H 07/17/17 23:43 VBG Potassium 3.4 mmol/L (3.6-5.2) L 07/17/17 23:43 Sodium 134.0 mmol/L (132-148) 07/17/17 23:43 Chloride 99.0 mmol/L (98-107) 07/17/17 23:43 Glucose 106 mg/dL (75-110) 07/17/17 23:43 Lactate 0.8 mmol/L (0.7-2.1) 07/17/17 23:43 FiO2 21.0 % 07/17/17 23:43 Sodium 134 mmol/l (132-148) 07/19/17 06:00 Potassium 3.9 MMOL/L (3.6-5.0) 07/19/17 06:00 Chloride 95 mmol/L (98-107) L 07/19/17 06:00 Carbon Dioxide 28 mmol/L (22-30) 07/19/17 06:00 Anion Gap 15 (10-20) 07/19/17 06:00 BUN 34 mg/dl (9-20) H 07/19/17 06:00 Creatinine 7.9 mg/dl (0.8-1.5) H* D 07/19/17 06:00 Est GFR ( Amer) 8 07/19/17 06:00 Est GFR (Non-Af Amer) 7 07/19/17 06:00 Random Glucose 83 mg/dL (75-110) 07/19/17 06:00 Calcium 8.1 mg/dL (8.4-10.2) L 07/19/17 06:00 Total Bilirubin 1.0 mg/dl (0.2-1.3) 07/17/17 22:10 AST 34 U/L (17-59) 07/17/17 22:10 ALT 24 U/L (21-72) 07/17/17 22:10 Alkaline Phosphatase 108 U/L (38-126) 07/17/17 22:10 Troponin I 0.0310 ng/mL (0.00-0.120) 07/17/17 22:10 Total Protein 7.3 G/DL (6.3-8.2) 07/17/17 22:10 Albumin 4.1 g/dL (3.5-5.0) 07/17/17 22:10 Globulin 3.2 gm/dL (2.2-3.9) 07/17/17 22:10 Albumin/Globulin Ratio 1.3 (1.0-2.1) 07/17/17 22:10 Amylase 96 U/L (30-110) 07/18/17 10:45 Lipase 60 U/L (23-300) 07/18/17 10:45 Venous Blood Potassium 3.4 mmol/L (3.6-5.2) L 07/17/17 23:43 Blood Type A POSITIVE 07/17/17 22:10 Antibody Screen Negative 07/17/17 22:10 BBK History Checked Patient has bt 07/17/17 22:10 - Hospital Course Hospital Course: 77 year old male presented with abdominal pain admitted due to possible SBO vs illeus, with leukocytosis. PAtient had NG tube inserted, that was removed. He is tolerating regular diet. He has had BM. Abdomen is soft, nontender nondistended. He will have dialysis today. The can be discharged after hemodyalisis if medically stable. - Date & Time of H&P Date of H&P: 07/18/17 Time of H&P: 08:55 Discharge Exam - Head Exam Head Exam: ATRAUMATIC, NORMOCEPHALIC - Eye Exam Eye Exam: EOMI, Normal appearance, PERRL - Respiratory Exam Respiratory Exam: NORMAL BREATHING PATTERN, UNREMARKABLE - Cardiovascular Exam Cardiovascular Exam: REGULAR RHYTHM - GI/Abdominal Exam GI & Abdominal Exam: Normal Bowel Sounds, Soft. absent: Distended, Guarding, Tenderness - Neurological Exam Neurological exam: Alert, CN II-XII Intact - Psychiatric Exam Psychiatric exam: Normal Affect, Normal Mood - Skin Skin Exam: Dry, Intact, Normal Color, Warm Discharge Plan - Follow Up Plan Condition: STABLE Disposition: HOME/ ROUTINE Additional Instructions: Patient to follow up Saturday or Saturday with Dr. Aiken.
--- NOTE | 2017-07-19 14:52 | CP.PCM.PN ---
Subjective - Date & Time of Evaluation Date of Evaluation: 07/19/17 Time of Evaluation: 11:00 - Subjective Subjective: Dialysis note He was seen on hemodialysis. Patient is awake and conscious. Vital signs stable and okay I discussed all done with the dialysis nurse at the bedside. Sodium bath 138 Bicarbonate bath 34 Potassium bath 2 Meq Ultrafiltration 1500 mL Physical exam Chest clear Heart no rubs Abdomen soft Extremity no edema Impression and plan End stage renal disease admitted with partial intestinal obstruction perhaps ilieus has been resolved apparently as noted by the surgery patient is comfortable now. Follow-up dialysis as outpatient at [facility] [place]. Objective - Vital Signs/Intake and Output Vital Signs (last 24 hours): Temp Pulse Resp BP Pulse Ox 98.3 F 72 20 152/80 H 95 07/19/17 08:23 07/19/17 08:23 07/19/17 08:23 07/19/17 08:23 07/19/17 08:23 - Medications Medications: Current Medications Gabapentin (Neurontin) 100 mg PO TID [facility] Last Admin: 07/19/17 13:50 Dose: 100 mg Heparin Sodium (Porcine) (Heparin) 5,000 units SC Q8@0500,1300,2100 [facility] PRN Reason: Protocol Last Admin: 07/19/17 13:47 Dose: 5,000 units Home Med (Linaclotide [Linzess]) 145 mcg PO DAILY [facility] Ciprofloxacin (Cipro 400mg/200ml Dsw) 400 mg in 200 mls @ 200 mls/hr IVPB Q12@ 0200,1400 [facility] PRN Reason: Protocol Last Admin: 07/19/17 01:19 Dose: 200 mls/hr Metronidazole (Flagyl) 500 mg PO Q8 [facility] PRN Reason: Protocol Last Admin: 07/19/17 10:04 Dose: 500 mg Multivitamins/Minerals (Therapeutic-M Tab) 1 tab PO DAILY [facility] Last Admin: 07/19/17 10:03 Dose: 1 tab Ondansetron HCl (Zofran Inj) 4 mg IVP Q4 PRN PRN Reason: Nausea/Vomiting Valsartan (Diovan) 160 mg PO DAILY [facility] Last Admin: 07/19/17 10:04 Dose: Not Given Zolpidem Tartrate (Ambien) 5 mg PO HS PRN PRN Reason: Insomnia Last Admin: 07/18/17 22:36 Dose: 5 mg - Labs Labs: 07/19/17 06:00 07/19/17 06:00
[2017-07-19 15:44] VITALS: BP 156/87; PULSE 89; RESP 18; TEMP 97.7; O2SAT 97
--- NOTE | 2017-07-19 18:04 | CARD ---
APPROVED REPORT EKG Measurement Heart [id number] <Conclusion> Normal sinus rhythm Left anterior fascicular block Prolonged QT Abnormal ECG
== END 2017-07-19 16:30 | disposition home or self-care (01) | DRG 388 ==
LOC: H.ER 21:37 → H.ERHOLD 07-18 02:05 → H.MEDSURG1 07-18 04:51 → OBSVTOIN 07-18 14:38
PROVIDERS: ADMIT Internal Medicine; ATTEND Internal Medicine
PROC: 5A1D70Z Performance of Urinary Filtration, Intermittent, Less than 6 Hours Per Day (ICD-10-PCS; principal; 2017-07-19)
DX: K56.600 Partial intestinal obstruction, unspecified as to cause (principal); N18.6 End stage renal disease; I13.2 Hypertensive heart and chronic kidney disease with heart failure and with stage 5 chronic kidney disease, or end stage renal disease; I48.91 Unspecified atrial fibrillation; I50.9 Heart failure, unspecified; E78.5 Hyperlipidemia, unspecified; E78.00 Pure hypercholesterolemia, unspecified; I25.10 Atherosclerotic heart disease of native coronary artery without angina pectoris; K52.9 Noninfective gastroenteritis and colitis, unspecified; K56.7 Ileus, unspecified; Z79.899 Other long term (current) drug therapy; Z90.49 Acquired absence of other specified parts of digestive tract; Z99.2 Dependence on renal dialysis; K59.00 Constipation, unspecified